=== PATIENT | female | born 1940 | race Caucasian/White ===

== ENCOUNTER 2023-10-21 15:42 | Emergency (ER) | payer OTHER, SELFPAY ==
[2023-10-21 15:56] VITALS: BP 173/79
[2023-10-21 16:47] VITALS: BMI 27.0
--- NOTE | 2023-10-21 18:12 | ED.GENMED ---
History of Present Illness
General
Chief Complaint: Fall
Source: patient
Time Seen by Provider: 10/21/23 18:04
Travel History
Have you had any contact with someone who has COVID-19?: No
Do you have any symptoms of coronavirus? Fever > 100 degrees, chills, cough, shortness of breath, sore throat, loss of taste or smell, muscle aches, or headache?: No
History of Present Illness
History of Present Illness:
83-year-old female presenting to the emergency department for evaluation after she was laying in a hammock and the hammock broke causing her to fall onto the ground striking the back of her head and lower back. Patient states that she feels as if
she is achy and has pain all over but worse on the left side of her body. She notes that she feels paresthesias diffusely. She denies any loss consciousness, vomiting, severe headache, focal weakness or numbness, neck pain or stiffness or any
other concerns. When asked what is bothering her the most patient states the back of her head and her lower back. Patient took 3 Advil around 230 this afternoon. She denies any use of anticoagulants. No other concerns
Past History
Past History
ED Past Medical History: HTN
ED Past Surgical History: , Orthopedic (Left knee meniscus repair, bilateral shoulder rotator cuff repair) and Other (Venous stripping right leg)
Social History
Tobacco: Non-smoker
Alcohol: None
Drug: None
Personal:
Living: with family
Employment: Employed
Review of Systems
Review of Systems
All Other Systems: ROS reviewed and negative except as documented in HPI and ROS
Phy Exam
Physical Exam
Physical Exam:
GENERAL: Alert , in no apparent distress but does appear uncomfortable with movement
Head: NCAT
EYE: conjunctiva clear
NECK: Supple, no midline tenderness
ENT: o/p clr, mmm.
LUNGS: no acute respiratory distress, no isolated chest wall tenderness
Back: Diffusely tender without any focal midline tenderness
NEUROLOGICAL: Alert and oriented x 3
SKIN: Warm and dry, skin intact.
MUSCULOSKELETAL: well perfused. Moves all extremities without difficulty
PSYCH: Normal and appropriate interaction.
Scores
Heart Failure Risk
Heart Failure Risk Score: Not Applicable
Heart Score for Chest Pain Patients
STEMI patient?: Not applicable
Withdrawal Assessment of Alcohol
Withdrawal Assessment Completed?: Not applicable
Course
Orders/Labs/Results
Orders:
Orders
10/21/23 18:12
CT Head W/o Iv Contrast Urgent
Comment:
Reason For Exam: fall from hammock, hit head, headache
CR Lumbar Spine Comp Min 4 Vw* Urgent
Comment:
Reason For Exam: fall from hammock, low back pain
Vital Signs
Initial and Last Documented VS:
Initial Vital Signs
Temp Pulse Resp BP Pulse Ox
98.1 F 68 18 173/79 98
10/21/23 15:56 10/21/23 15:56 10/21/23 15:56 10/21/23 15:56 10/21/23 15:56
Last Documented Vital Signs
Temp Pulse Resp BP Pulse Ox
98.1 F 68 18 173/79 98
10/21/23 15:56 10/21/23 15:56 10/21/23 15:56 10/21/23 15:56 10/21/23 15:56
MDM/Problems Addressed
Differential Diagnosis Includes:
Contusion, concussion, minimal concern for intracranial bleeding, lumbar contusion, lumbar fracture
MDM/Problems Addressed:
83-year-old female presenting to the emergency department for evaluation after she was sitting in a hammock and the hammock broke causing her to fall to the ground. Patient noting diffuse body aches but stating most of her injury seems to be back
of her head and her lower back. She is moving all extremities. Will check a head CT and x-ray of the lower back. Overall I suspect contusion to be the most likely diagnosis. Patient declining anything further for pain.
*Radiology
Radiology exam reviewed: radiology read reviewed
*Pulse Oximetry
Patient hypoxic: no
*Critical Care Note
Total Time (30-74mins, 75-104mins- exclusive of procedures): Not Applicable
Data Reviewed
Review of Other/Old Records Reveals: Labs and Records
Source: patient and records
Patient Management
Escalation/DeEscalation of care consider admission/obs:
Imaging unremarkable. Patient stable for discharge home and aware of return precautions.
ED Attending Note
-
Portions of this chart may have been created with voice recognition software.� Occasional wrong word or��sound alike� substitutions may have occurred due to the inherent limitations of voice recognition software.
Discharge Plan
Departure
Patient Disposition: Home (Routine Discharge)
Date of Disposition: 10/21/23
Time of Disposition: 19:13
Patient with high blood pressure during this ER visit?: Yes
Discharge Problem:
Fall involving hammock as cause of accidental injury, Contusion of head, Contusion of back
Instructions: Contusion (DC)
Prescriptions:
No Action
escitalopram oxalate 10 MG tablet
10 mg PO DAILY
cranberry 400 mg Capsule
400 mg PO DAILY
biotin 1 mg Tablet
1 mg PO DAILY
cholecalciferol (vitamin D3) [Vitamin D3] 25 mcg (1,000 unit) Tablet
25 mcg PO DAILY
zolpidem 5 mg Tablet
5 mg PO HSPRN PRN (Reason: insomnia) Qty: 1 0RF
Rx Instructions:
Was decreased on this admission
docusate sodium 100 mg Capsule
100 mg PO BID Qty: 30 0RF
Rx Instructions:
Initiated on this admission
polyethylene glycol 3350 [HealthyLax] 17 gram Powder In Packet
17 g PO DAILY Qty: 30 0RF
Rx Instructions:
Initiated on this admission
oxycodone 5 mg Tablet
5 mg PO TID Qty: 1 0RF
Rx Instructions:
Decreased on this admission
acetaminophen 325 mg Tablet
650 mg PO Q4HPRN PRN (Reason: mild pain/M[place]/temp> 100.4F) Qty: 1 0RF
lisinopril 20 mg Tablet
20 mg PO DAILY Qty: 30 0RF
Rx Instructions:
Combination of lisinopril hydrochlorothiazide discontinued
Continue just on lisinopril
lorazepam 1 mg Tablet
1 mg PO BID PRN (Reason: Mental Health/Anxiety) Qty: 0 0RF
Patient Comments:
PATIENT LOCATOR SPECIALIST ON 11/02/22 #60
Referrals:
Balaji Gross, DO [Family Provider] -
Interventions
Interventions:
*Risk Screen - Suicide Last Done: 10/21/23 19:28
*General Assessment Last Done: 10/21/23 15:56
*Neglect/Abuse Screening Last Done: 10/21/23 19:28
ED- Fall Risk Assessment Last Done: 10/21/23 16:47
*ED COVID-19 Vaccine History Last Done: 10/21/23 15:56
*Nursing Disposition Last Done: 10/21/23 19:28
ED-Musculoskeletal Assessment Last Done: 10/21/23 16:47
ED- Neurological Assessment Last Done: 10/21/23 16:47
ED-Skin Assessment Last Done: 10/21/23 16:47
Discharge Date and Time
Discharge Date/Time: 10/21/23 19:28
Print Language: GREEK
== END 2023-10-21 19:28 | disposition home or self-care (01) ==
LOC: EMR 15:42
PROVIDERS: EMERGENCY PHYSICIAN Emergency Medicine; FAMILY PHYSICIAN Internal Medicine
DX: S20.229A Contusion of unspecified back wall of thorax, initial encounter (principal); S00.83XA Contusion of other part of head, initial encounter; W17.89XA Other fall from one level to another, initial encounter; I10 Essential (primary) hypertension
CPT/HCPCS: 99284; 70450; 72110

== ENCOUNTER → 2023-12-06 13:47 | Outpatient (REF) | payer OTHER, SELFPAY | LOC: RCS 13:47 | PROVIDERS: ATTENDING PHYSICIAN Nurse Practitioner Family; FAMILY PHYSICIAN Internal Medicine | DX: R00.2 Palpitations (principal) | CPT/HCPCS: 93005; 93225; 93226 ==

== ENCOUNTER → 2023-12-10 07:05 | Outpatient (REF) | payer OTHER, SELFPAY | LOC: RCS 07:05 | PROVIDERS: ATTENDING PHYSICIAN Internal Medicine | DX: R00.2 Palpitations (principal) | CPT/HCPCS: 93306 ==

== ENCOUNTER 2023-12-21 08:42 | Day surgery (SDC) | payer OTHER, SELFPAY ==
[2023-12-21] MEDS: ANESTHETIC LOZENGE 1 LOZENGE PO (11:04)
== END 2023-12-21 11:15 | disposition home or self-care (01) ==
LOC: CATH 08:42
PROVIDERS: ATTENDING PHYSICIAN Internal Medicine Cardiovascular Disease; FAMILY PHYSICIAN Internal Medicine
DX: I34.0 Nonrheumatic mitral (valve) insufficiency (principal); R00.2 Palpitations; I10 Essential (primary) hypertension; F41.9 Anxiety disorder, unspecified; Z82.49 Family history of ischemic heart disease and other diseases of the circulatory system
CPT/HCPCS: 93312; 93320; 93325

== ENCOUNTER 2023-12-26 06:34 | Day surgery (SDC) | payer OTHER, SELFPAY ==
[2023-12-26] VITALS (12 sets, daily range): BP systolic 139–172; BP diastolic 65–83; BMI 25.5
[2023-12-26] MEDS: NSS 184 ML IV (07:08)
[2023-12-26] MEDS: LOW STRENGTH ASPIRIN 81 MG PO (07:12)
--- NOTE | 2023-12-26 08:56 | ITS.CL.CATH ---
Registered Nurse Maternal Child - Catheterization
Cardiac Catheterization
Procedure Report:
CARDIAC CATHETERIZATION REPORT
Date of Procedure: 12/26/2023
Referring: Gigi Al M.D.
Indication: Severe mitral valve regurgitation
PROCEDURE:
1. Right heart catheterization.
2. Left heart catheterization.
3. Coronary angiography.
ACCESS:
6 [place] right radial artery.
5 [place] right antecubital vein.
CATHETERS:
1. 5 [place] balloon wedge.
2. 5 [place] JL 3.5.
3. 5 [place] JR4.
HEMODYNAMIC DATA
Weight (kg): 60.8
AO (s/d/x mmHg): 184/77/120
LV (s/x mmHg): 184/16
PCWP (a/v/x mmHg): 22//16
PA (s/d/x mmHg): 40/16/24
RV (s/x mmHg): 40/10
RA (a/v/x mmHg): 12/12/10
SVC SvO2 (%): 60.1
PA SvO2 (%): 65.1
SaO2 (%): 94.3
Hbg (g/dL): 13.0
CO (L/min): 2.71
CI (L/min/m2): 1.70
TPG (mmHg): 8
PVR (Strauss Units): 2.95
SVR (dynes*seconds*cm^-5): 3247
AVO2 Diff (Volume %): 5.16
AV gradient (x, mmHg): None.
AV area (cm2): Normal.
LEFT VENTRICULOGRAPHY: Not performed. There is dense mitral annular calcification.
CORONARY ANGIOGRAPHY
Dominance: Right.
Left Main: Normal size, bifurcating vessel. There is no coronary artery disease.
LAD: Normal size vessel giving rise to 1 significant diagonal. There is no coronary artery disease.
Ramus: Congenitally absent.
Circumflex: Large size, nondominant vessel giving rise to a single large obtuse marginal which supplies the majority of the lateral wall. There is no coronary artery disease.
RCA: Normal size vessel with an anterior takeoff and nonselective engagement. There is no coronary artery disease.
INTERVENTIONS
None.
Closure Device: Vascular band for the right radial artery, manual pressure for the right antecubital vein.
Radiation dose (mGy): 236.91
DAP (cm2.Gy): 22.2417
Fluoroscopy time (minutes): 3.4
Sedation time (minutes): 15
CONCLUSIONS:
1. Right dominant circulation with no coronary artery disease.
2. Top normal to mildly elevated filling pressures (LVEDP = 16 mmHg, PCWP = 16 mmHg at 60.8 kg).
3. Depressed cardiac index (1.7 L/min/m�).
4. Severely elevated SVR (3247 dynes*seconds*cm^-5).
5. Dense mitral annular calcification.
6. Severe degenerative mitral regurgitation on echocardiography.
RECOMMENDATIONS:
1. Expectant management after cardiac catheterization via right radial/antecubital approach.
2. Limited weight bearing on the right wrist for one week.
3. Referral to CT surgery for consideration of mitral valve repair/replacement.
4. Careful observation of blood pressure with low threshold to increase lisinopril (to decrease SVR and improve forward flow).
Copy to: Gigi Al M.D., Wang Reynolds M.D., Balaji Gross D.O.
Elmer Cannon, DO, FACC, FACP
== END 2023-12-26 11:35 | disposition home or self-care (01) ==
LOC: CATH 06:34
PROVIDERS: ATTENDING PHYSICIAN Internal Medicine Cardiovascular Disease; CONSULT PHYSICIAN Thoracic Surgery (Cardiothoracic Vascular Surgery); FAMILY PHYSICIAN Internal Medicine
DX: I34.0 Nonrheumatic mitral (valve) insufficiency (principal); R00.2 Palpitations; I10 Essential (primary) hypertension; Z82.49 Family history of ischemic heart disease and other diseases of the circulatory system; Z79.82 Long term (current) use of aspirin
CPT/HCPCS: 93460; C1894; Q9967

== ENCOUNTER → 2024-01-25 07:22 | Outpatient (REF) | payer OTHER, SELFPAY | LOC: RAD 07:22 | PROVIDERS: ATTENDING PHYSICIAN Thoracic Surgery (Cardiothoracic Vascular Surgery); FAMILY PHYSICIAN Internal Medicine | DX: I34.0 Nonrheumatic mitral (valve) insufficiency (principal); Z01.818 Encounter for other preprocedural examination | CPT/HCPCS: 74174; 75574; Q9967 ==

== ENCOUNTER 2024-01-31 05:07 | Inpatient (IN) | payer OTHER, SELFPAY ==
[2024-01-10 14:08] LABS: % Basophils 0.6 % (0-2); % Eosinophils 3.9 % (0-6); % Immature Granulocytes 0.3 % (0-0.5); % Lymphocytes 19.4 % (20.5-51.1); % Monocytes 11.2 % (1.7-9.3); % Neutrophils 64.6 % (42.2-75.2); Absolute Eosinophils 0.3 10^3/uL (0-0.7); Absolute Lymphocytes 1.4 10^3/uL (1.2-3.4); Absolute Monocytes 0.8 10^3/uL (0.1-0.6); Absolute Neutrophils 4.7 10^3/uL (1.4-6.5); Hematocrit 34.9 % (37.0-47.0); Hemoglobin 12.3 g/dL (12.0-16.0); Mean Corp Hgb Conc. 35.2 g/dL (33.0-37.0); Mean Corpuscular Hgb 31.3 pg (27.0-31.0); Mean Corpuscular Volume 88.8 fL (81.0-99.0); Mean Platelet Volume 9.8 fL (7.4-10.4); Nucleated Red Blood Cells % 0 %; Platelet Count 307 10^3/uL (130-400); Red Blood Cell Count 3.93 10^6/uL (4.20-5.40); Red Cell Dist. Width 11.6 % (11.5-14.5); White Blood Cell Count 7.3 10^3/uL (4.8-10.8)
[2024-01-10 14:25] LABS: INR 1.06; PT 13.6 Sec (11.4-14.6)
[2024-01-10 14:26] LABS: APTT 31.9 Sec (23.4-35.0)
[2024-01-10 14:38] LABS: ALT (SGPT) 16 U/L (0-35); AST (SGOT) 25 U/L (14-36); Albumin 4.5 g/dl (3.5-5.0); Alkaline Phosphatase 67 U/L (38-126); Blood Urea Nitrogen 28 mg/dl (7-17); Calcium 10.1 mg/dl (8.4-10.2); Carbon Dioxide 27 mmol/L (22-30); Chloride 94 mmol/L (98-107); Direct Bilirubin 0.1 mg/dl (0.0-0.4); Glucose 75 mg/dl (70-99); Sodium 127 mmol/L (135-145); Total Bilirubin 0.6 mg/dl (0.2-1.3); Total Protein 6.7 g/dl (6.3-8.2); eGFR > 60.00
[2024-01-10 14:44] LABS: Potassium 4.3 mmol/L (3.5-5.1)
[2024-01-10 14:57] LABS: Urine Albumin Negative (Neg - Trace); Urine Bilirubin Negative (Negative); Urine Character Clear (Clear); Urine Color Yellow; Urine Glucose Negative (Negative); Urine Ketone Negative (Negative); Urine Leukocyte Negative (Negative); Urine Nitrite Negative (Negative); Urine Occult Blood Trace (Negative); Urine Specific Gravity 1.015 (<1.030); Urine Urobilinogen Negative (Neg - 1+)
--- NOTE | 2024-01-10 15:08 | CM ---
spoke to pt in PAT's, she is prev indep, lives with her daughter in a 2 story home with no steps to enter. shedenies any dme's. she has the cardiac educ book, soap and instructions. she is agreeable to a f/u visit fro the ct transitional care nurses
after dc. plan is for MVR 01/30, cm role explained and all questions answered.
[2024-01-10 15:16] LABS: Urine Squamous Cell 0-2 /LPF (Few)
[2024-01-10 15:17] LABS: Urine Bacteria Few (Negative); Urine Red Blood Cell 0-2 /HPF (0-2); Urine White Cell 0-2 /HPF (0-5)
[2024-01-11 10:53] LABS: Glycohemoglobin (HgbA1c) 5.3 % (4.0-5.6)
[2024-01-31] VITALS (12 sets, daily range): BP systolic 77–157; BP diastolic 47–85; BMI 26.1
[2024-01-31] MEDS: LOPRESSOR 25 MG PO (05:32)
[2024-01-31] MEDS: PROTONIX 40 MG PO (05:32)
[2024-01-31] MEDS: MAGNESIUM OXIDE 500 MG PO (05:32)
[2024-01-31] MEDS: BACTROBAN 2% OINTMENT 1 APPLIC NASAL ×2 (05:33→19:35)
--- NOTE | 2024-01-31 05:45 | PTCARENOTE ---
pt admitted into room 2262. VS and weight obtained. pt confirms 2 showers @ home w surgical soap and NPO since midnight. admission questions and med rec completed. clip prep and CHG wipes done. pre-op meds given. pt oriented to room and call ram.
family now @ bedside.
--- NOTE | 2024-01-31 06:19 | W.CVOR.SURPR ---
CVOR Surgeon Immed Pre Op
-
I have examined this patient prior to performance of the scheduled procedure.
The patient's condition is unchanged from the time of the dictated/written History and
Physical and the patient is able to undergo the scheduled procedure.
High risk MVrR, MARIAH Clip +/- TV Repair
Significant MAC burden
--- NOTE | 2024-01-31 06:31 | W.PN.CT ---
Assessment / Plan
-
Assessment:
-S/p standard sternotomy with aortic and bicaval cannulation/Chordal sparing mitral valve replacement [27 mm bioprosthesis]/ Patch repair of the annulus from P1-P3 using bovine pericardium/Aggressive debridement using the CUSA device in order to
remove all of the MAC/Left atrial appendage exclusion with a 35 mm clip, by Dr. Reynolds, 01/31/24, pod#1
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
-Degenerative mitral valve disease with elements of stenosis and retracted cords, resulting in severe insufficiency
-LVEF 60-65% per intraop CHA
-Mild TR
-Chronic diastolic CHF
-HTN
-Chronic back S/p Epidural steroid injections of L2-L3 (01/29/21); L4-L5 ()
-Chronic opioid dependence
-Anxiety disorder
-Anemia
-S/P R ROSELINE (06/2020)
-S/P B/L shoulder surgery (2011)
-S/P x 4
-Acute postop blood loss anemia on chronic anemia (transfused 1u PRBC)
-Acute postop atelectasis
-Acute postop Cardiogenic shock (CI 0.85-1.52)
-Acute postop hypovolemia with subsequent hypervolemia
Plan:
-No major issues overnight. Hemodynamically and neurologically intact
-Successfully extubated on 01/31/24 @ 2044
-Weaned off Levophed overnight, on dobutamine @ , remains on insulin per protocol
-Last CI, MVO2 , U/O since OR
-Monitor chest tube output: 2med , Rpl
-Cont. current meds (ASA, Lexapro; Amiodarone and Lopressor currently on hold while on dobutamine gtt)
-Wean off dobutamine gtt as tolerated
-D/C swan and a-line once off dobutamine gtt
-Tele phase when off insulin and dobutamine gtt
-D/C woodson catheter later today
-Maintain cordis
-Maintain temporary pw (will pull in 1-2 days)
-Wean off of O2 as tolerated
-Encourage use of IS
-OOB into chair/Ambulate
Subjective
-
Date of Service: January 31, 2024
Objective Data
-
Lab Results
01/10/24 12:39
01/10/24 12:40
PT 13.6 Sec (11.4-14.6) 01/10/24 12:39
INR 1.06 01/10/24 12:39
APTT 31.9 Sec (23.4-35.0) 01/10/24 12:39
Vital Signs
Vital Signs
Temp Pulse Resp Pulse Ox
97.7 F 67 20 98
01/31/24 05:25 01/31/24 05:25 01/31/24 05:25 01/31/24 05:25
SaO2: 98
[2024-01-31 07:19] LABS: ACT+ - POC 93 Seconds (82-134)
--- NOTE | 2024-01-31 07:48 | W.PN.CD ---
Today's Communication / Plan
-
Surgery today.
Impression / Plan
-
Impression/Plan: 83 y/o female with HTN and severe, degenerative mitral valve regurgitation with dense MAC admitted for elective MVR.
#Severe, degenerative MVR
-Patient reviewed in MDT meeting. The patient is not an ideal candidate for JEYSON and would make a better surgical candidate.
-Plan for mitral valve repair/replacement this morning.
-Anticipate routine post operative course.
-Wean pressors/inotropes for a MAP > 65 mmHg, CI > 2.2 L/min/m2.
#HTN
-Chronic, stable.
-We will adjust medications as needed post op.
Subjective/Interval History:
Patient is currently undergoing surgery.
DATA:
Cardiac Catheterization, 12/26/2023:
CONCLUSIONS:
1. Right dominant circulation with no coronary artery disease.
2. Top normal to mildly elevated filling pressures (LVEDP = 16 mmHg, PCWP = 16 mmHg at 60.8 kg).
3. Depressed cardiac index (1.7 L/min/m�).
4. Severely elevated SVR (3247 dynes*seconds*cm^-5).
5. Dense mitral annular calcification.
6. Severe degenerative mitral regurgitation on echocardiography.
CHA, 12/21/2023:
CONCLUSIONS
Normal LV size and function with no regional wall motion abnormalities.
LVEF is 60 to 65% by visual estimation.
Normal right ventricular size and function.
Mitral annular calcification with posterior leaflet prolapse of the P2 and P3
scallops with resultant anteriorly directed severe mitral regurgitation.
Systolic flow reversal (suggestive of severe MR) in the pulmonary veins.
Compared to prior from December 10, 2023, MR remains severe.
Physical Exam
Vital Signs/Labs
Vital Signs
Temp Pulse Resp Pulse Ox
36.5 C 67 20 98
01/31/24 05:25 01/31/24 05:25 01/31/24 05:25 01/31/24 06:32
01/29/24 01/30/24 01/31/24
11:59 11:59 11:59
Actual Weight 62.6 kg
01/10/24 12:39
01/10/24 12:40
PT 13.6 Sec (11.4-14.6) 01/10/24 12:39
INR 1.06 01/10/24 12:39
APTT 31.9 Sec (23.4-35.0) 01/10/24 12:39
Physical Exam
Patient appears comfortable.
Remainder of exam deferred at Dr. Reynolds's request.
Data Reviewed
-
Date of Service: January 31, 2024
Medical Decision Making: Reviewed Test Results, Test Interpretation and Review of Case with other Provider
EKG: Tracing Personally Visualized and interpreted and Report Reviewed by me
Echo: Tracing Personally Visualized and interpreted and Report Reviewed by me
X-Ray/CT/US/MRI/NUC/PET: Image Personally Visualized and interpreted and Report Reviewed by me
Medical Tests (PFT, Pathology etc): Image Personally Visualized and interpreted and Report Reviewed by me
Labs: Labs Reviewed by me
Old Records: Reviewed
[2024-01-31 08:22] LABS: ACT+ - POC 911 Seconds (82-134)
[2024-01-31 08:38] LABS: B.E. - POC -1.1 mmol/L; Glucose - POC 89 mg/dl (70-99); HCO3 - POC 22 mmol/L (21-29); Hematocrit - POC 32 % PCV (37-47); Hemodilution- POC No; Hemoglobin Calculated - POC 10.8; Ionized Calcium - POC 1.22 mmol/L (1.12-1.27); O2 Saturation %Calculated-POC 99.8 5 (92-96); PCO2 - POC 31 mmHg (35-45); PO2 - POC 224 mmHg (80-100); POC Comment PRE; Potassium - POC 3.3 mmol/L (3.6-5.0); Sodium - POC 132 mmol/L (135-145); pH - POC 7.46 (7.35-7.45)
[2024-01-31 08:39] LABS: Urine Albumin Negative (Neg - Trace); Urine Bilirubin Negative (Negative); Urine Character Clear (Clear); Urine Color Yellow; Urine Glucose Negative (Negative); Urine Ketone Negative (Negative); Urine Leukocyte Negative (Negative); Urine Nitrite Negative (Negative); Urine Occult Blood Negative (Negative); Urine Specific Gravity 1.015 (<1.030); Urine Urobilinogen Negative (Neg - 1+)
--- NOTE | 2024-01-31 09:13 | CM ---
Reviewed chart. Mrs. Melton is in the operating room today. Prior to admission she resides with her daughter in a two story home without any steps to enter. Prior to admission she was independent with ambulation and adls. She does not have any
DME in the home. Medial work-up in progress. The discharge plan is to return home with her daughter and a home visit by the Cardiothoracic Transitional Care Nurse when medically stable.
[2024-01-31 09:14] LABS: B.E. - POC 5.6 mmol/L; Glucose - POC 97 mg/dl (70-99); HCO3 - POC 28 mmol/L (21-29); Hematocrit - POC 21 % PCV (37-47); Hemodilution- POC Yes; Hemoglobin Calculated - POC 7.2; Ionized Calcium - POC 0.91 mmol/L (1.12-1.27); PCO2 - POC 33 mmHg (35-45); PO2 - POC 508 mmHg (80-100); POC Comment CPB; Potassium - POC 3.8 mmol/L (3.6-5.0); Sodium - POC 128 mmol/L (135-145); pH - POC 7.55 (7.35-7.45)
[2024-01-31 10:00] LABS: B.E. - POC 4.8 mmol/L; Glucose - POC 117 mg/dl (70-99); HCO3 - POC 27 mmol/L (21-29); Hematocrit - POC 27 % PCV (37-47); Hemodilution- POC Yes; Hemoglobin Calculated - POC 9.2; Ionized Calcium - POC 1.02 mmol/L (1.12-1.27); PCO2 - POC 32 mmHg (35-45); PO2 - POC 435 mmHg (80-100); POC Comment CPB; Sodium - POC 133 mmol/L (135-145); pH - POC 7.54 (7.35-7.45)
[2024-01-31 10:15] LABS: ACT+ - POC 780 Seconds (82-134)
[2024-01-31 10:27] LABS: B.E. - POC 2.7 mmol/L; Glucose - POC 126 mg/dl (70-99); HCO3 - POC 27 mmol/L (21-29); Hematocrit - POC 28 % PCV (37-47); Hemodilution- POC Yes; Hemoglobin Calculated - POC 9.4; Ionized Calcium - POC 1.06 mmol/L (1.12-1.27); O2 Saturation %Calculated-POC 99.9 5 (92-96); PCO2 - POC 37 mmHg (35-45); PO2 - POC 316 mmHg (80-100); POC Comment CPB; Potassium - POC 4.4 mmol/L (3.6-5.0); Sodium - POC 133 mmol/L (135-145); pH - POC 7.46 (7.35-7.45)
[2024-01-31 10:57] LABS: ACT+ - POC 101 Seconds (82-134)
[2024-01-31 11:04] LABS: B.E. - POC -2.8 mmol/L; Glucose - POC 146 mg/dl (70-99); HCO3 - POC 21 mmol/L (21-29); Hematocrit - POC 26 % PCV (37-47); Hemodilution- POC Yes; Hemoglobin Calculated - POC 8.8; Ionized Calcium - POC 1.41 mmol/L (1.12-1.27); PCO2 - POC 31 mmHg (35-45); PO2 - POC 355 mmHg (80-100); POC Comment POST; Potassium - POC 3.4 mmol/L (3.6-5.0); Sodium - POC 137 mmol/L (135-145); pH - POC 7.44 (7.35-7.45)
--- NOTE | 2024-01-31 11:43 | W.PN.CT.SURG ---
CT Surgery Operative Note
-
CARDIAC SURGERY OPERATIVE REPORT
Preoperative Diagnosis: Degenerative mitral valve disease with severe mitral annular calcification, symptomatic
Postoperative Diagnosis: Same
Procedure(s) Performed:
1. Standard sternotomy with aortic and bicaval cannulation
2. Chordal sparing mitral valve replacement [27 mm bioprosthesis]
3. Patch repair of the annulus from P1-P3 using bovine pericardium
4. Aggressive debridement using the CUSA device in order to remove all of the MAC
5. Left atrial appendage exclusion with a 35 mm clip
6. Transesophageal echocardiography
7. Placement of temporary atrial ventricular pacing wires
Date of Surgery: 01/31/2024
Comorbidities:
1. 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
2. Degenerative mitral valve disease with elements of stenosis and retracted cords, resulting in severe insufficiency
3. Hypertension
4. Chronic diastolic heart failure
Attending Surgeon: Wang Reynolds MD, MS
Assistants: Wang Myers PA-C (present and necessary to exceptional children teacher assistant, retraction, suction, exposure, suture management, and wound closure under my direction)
Anesthesiology: Amrik Bell MD and Rhea Sheridan CRNA
Scrub and Circulating RNs: Brad Monique RN, Mary Russell RN
Bulb Packer: Amos Fierro CCP
Anesthesia: GETA
EBL: per perfusion records
Products: None
CPB Time: 133 minutes
Aortic Cross Clamp Time: 120 minutes
Indication(s) for Procedures: This was an 83-year-old female with severe mitral valve insufficiency secondary to prolapse of the leaflets as well as severe mitral annular calcification, 270 degrees. She was referred as an outpatient to me, and came
to the office severely symptomatic that was notable for the last 6 months. Right heart cath demonstrated mildly depressed cardiac index of 1.7. Left heart cath did not reveal any significant coronary artery disease. Her baseline functional status
is excellent. We discussed her case at our multidisciplinary team meeting, conclusion was that she was not a great clip candidate or TMVR candidate. Ultimately, I offered her high risk surgical replacement of mitral valve as well as left atrial
Penders occlusion and possible tricuspid valve intervention.
Mitral Valve Description: Severe mitral annular calcification spanning from the left to right trigone with severe infiltration into the myocardium. Papillary muscle heads were also shortened and the leaflets were retracted with some scarring up
towards the free margin the leaflet. There was some evidence of prolapse of the posterior leaflet. However, the overall jet was relatively central. The valve was not salvageable. C-Sept was 1.2cm and her ventricular was hyperdynamic and mildly
hypertrophied making her extremely high risk for RENE.
Findings: Left ventricular ejection fraction preoperatively was 65% with evidence of diastolic dysfunction. Following surgery she had no new regional wall motion abnormalities and EF remained the same at 65% possibly 70% and was hyperdynamic.
There was severe calcification spanning from trigone to trigone along the posterior aspect of the mitral valve. The posterior leaflet was detached and the calcification was debrided down to the level of the muscle of the left atrium and left
ventricle. At this point using a large piece of bovine pericardium, the raw surface that was debrided using the CUSA device was then covered and patched with 4-0 Prolene in a running fashion from apex to apex. The ventricle as well as the atrium
and pulmonary veins were thoroughly irrigated and inspected for any debris. Next pledgeted 2 Ethibond sutures to circumferentially going from LV through patch through annulus and back out into the sewing cuff of the new valve. The new valve was
then oriented after using a dental mirror to visualize the LVOT and aortic valve. A total of 13 pledgeted 2 Ethibond sutures were used to secure the valve in place. An additional piece of bovine pericardium was placed along the anterior annulus to
support the tissue there. These were secured with core knots. The valve was then inspected and appeared to be well-seated. The left atrial appendage was verified to be free of any thrombus or debris preoperatively and was clipped after arresting
the heart before working on the mitral valve to minimize manipulation. Coming off of cardiopulmonary bypass she had a period of AV dyssynchrony requiring pacing but ultimately settled out. The mitral valve did not have any paravalvular leak and
all leaflets were moving accordingly. The LVOT was free of any struts for obstruction and the mean gradient across the mitral valve was acceptable. The left atrial appendage was found to be totally occlusive flush to the base with no residual flow
on color Doppler. Overall she did not require any blood products, and did not require any inotropic support. She was started on Cardene for hypertension.
Specimen(s): Calcium from the mitral annulus (not sent).
Prosthesis:
1. 27mm GALINDO MITRIS RESILIA MVR, SN [id number]
2. 35mm MARIAH Clip, SN [id number]
3. Biological Patch, SN [id number]
Description of Procedure: The patient was taken to the operating room. Their identity and procedure to be performed were verified and they were positioned supine on the operating table. Induction via general anesthesia with endotracheal intubation
was performed and central venous access and arterial monitoring were inserted. A preoperative transesophageal echocardiogram was performed to assess cardiac function and valvular function. The patient was then prepped and draped from chin to feet in
a sterile fashion. A preoperative time-out was performed with all members of the team present. A midline chest incision was performed along with median sternotomy. The innominate vein was isolated. Full heparinization was given (a total of 35,000
units). We created a pericardial well. The aortic cannulation site was chosen where it was soft, pliable, and free of calcium. Cannulation was performed with an arterial cannula in the ascending aorta, angled metal tip cannular in the superior vena
cava and straight bendable cannula in the inferior vena cava. The arterial cannula line had an appropriate bounce and correlating pressures. Next, a root vent/antegrade cannula was inserted into the ascending aorta. The ACT was confirmed to be over
400 and retrograde autologous priming was performed before commencing cardiopulmonary bypass. The pulmonary artery was away from the aorta to facilitate a clamp site. Sondergaard�s groove was developed after creating the oblique sinus. A
Ray-Svetlana was then placed through the oblique sinus in order to help retract the heart medially to expose left atrial appendage. It was sized to a 35 mm clip and placed flush to the base. The aortic cross-clamp was placed after decreasing the flow
on the bypass and mean arterial pressure. A total of 1.2L initial dose of antegrade Del-Nido cardioplegia solution was given and planned for re-dosing every 75 minutes as necessary. There was rapid electro-mechanical arrest of the heart at 270 cc of
cardioplegia. The left ventricle was observed for distention on echocardiogram and manual palpation. Cold slush was placed into a lap on the RV and we systemically cooled to 34 degrees centigrade.
Carbon dioxide was used to flood the field. The mitral valve was access via the intra-atrial groove and the left atrium followed by valve analysis. The mitral valve was replaced as described above after debridement of the mitral annular
calcification and patching of the annulus. The left ventricular vent was repositioned across the mitral valve into the left ventricular and the left atrium was closed with a 3-0 prolene.
De-airing maneuvers were performed and temporary bipolar ventricular pacing wires were placed on the base of the right ventricle along with temporary atrial pacing wires at the SVC right atrial junction. The patient was placed in a Trendelenburg
position and flows on bypass were lowered. The aortic cross clamp was removed and flows were slowly brought back up. The left atrial suture line was hemostatic. Transesophageal echocardiography revealed no evidence of systolic anterior motion and
ventricular function was normal. Once de-airing was satisfactory the left ventricular and root vents were removed. After verifying acceptable parameters, we initiated weaning from cardiopulmonary bypass. Once we were off cardiopulmonary bypass, the
venous cannulas was clamped and removed sequentially. A test dose of protamine was administered and the patient was monitored for any adverse reaction before resuming protamine. Once half of the protamine dose was delivered, pump suckers were turned
off and the systolic blood pressure was lowered for aortic decannulation. The aortic cannula was removed and purse strings were tied down. All cannulation sites were oversewn with a 4-0 prolene. The left atrial suture line was inspected and
hemostasis was confirmed. Mediastinal hemostasis was obtained. Two #24 Lucien drains were placed within the pericardium. Along with a #19 Lucien drain to the right hemithorax the sternum was approximated with 4 #7 single and 3 #8 double stainless
steel wires. Fascia was approximated with #1 vicryl suture. The subcutaneous, dermis and epidermis were closed in layers in a running fashion. The skin wound was cleansed and dressed.
All instrument, sponge, and needle counts were confirmed to be correct x 2 at the end of the operation. The patient was transferred to the cardiac intensive care unit in critical but stable condition.
I, Dr. Wang Reynolds, was present, scrubbed for, and performed all critical elements of this procedure.
Wang Reynolds MD, MS
Cardiothoracic Surgeon
[facility]
This dictation was created using the [employer] dictation system. Please excuse any grammatical, typographical, or 'sound alike' errors
[2024-01-31 11:57] LABS: Glucose - Point of Care 147 mg/dl (70-99)
--- NOTE | 2024-01-31 12:04 | W.PN.UPDATE ---
Update Note
Progress Note Update
83-year-old female electively admitted on 01/31/2024 for mitral valve replacement due to nonrheumatic severe mitral regurgitation
IV fluids: 1100
U.O.:� 800
Blood:� none
Wires:� 2A & bipolar V-wire
Gtts:� Levophed, Insulin, Precedex
�
�
NEURO: sedated on Precedex, pupils +2mm B/L. Cold on admission (T 95.3F)
RESP: #8OT @24cm> 450/100%/14/5. Lungs clear B/L. 1 mediastinal (0cc on arrival) and R/L pleural (0cc on arrival) chest tubes to -20cm suction. Sanguineous drainage
CV: RRR +S1, S2, no S3, no�rub, no murmur. Dermabond to median sternotomy. RIJ w/[place] locked @ XXcm. PA /; CVP 11
ABD: round, soft, no BS
EXT: no edema, +2/4 DP pulses B/L, no femoral bruit, left radial A-line intact
: Correia with john paul colored urine
�
A/P: POD #0 s/p Chordal sparing mitral valve replacement [#27 mm bioprosthesis], patch repair of the annulus from P1-P3 with bovine pericardium, left atrial appendage exclusion #35 mm clip
CHA: report pending
- wean and extubate
- Maintain SBP<110mmHg
- check echo pre-discharge
- will need instruction regarding antibiotic prophylaxis for dental and invasive procedures
- Marianela Hugger
�
# acute surgical blood loss anemia-expected
- HB 10>trend CBC
�
�# Hypertension
- on Lisinopril, HCTZ at home
- currently on Levophed
# Anxiety
- continue Escitalopram 20mg daily
[2024-01-31 12:12] LABS: B.E. -3.7 mmol/L; HCO3 20.3 mmol/L (21-28); Ionized Calcium 1.32 mMOL/L (1.15-1.33); O2 Saturation % 99.8 % (94-98); PCO2 32 mmHg (32-35); PO2 269 mmHg (83-108); Potassium 3.2 mMOL/L (3.5-5.1); Sodium 135 mMOL/L (136-145); pH 7.41 (7.35-7.45)
--- NOTE | 2024-01-31 12:13 | PTCARENOTE ---
Received pt from [facility] at 1145; pt intubated and sedated; Sinus Bradycardia on monitor and VSS; RITesfaye Jaime floated to 46. Left A-line and PIV x 1; all lines leveled and zeroed; Insulin and Precedex infusing see flow sheet for details;
Epicardial A/V wires set to back up VVI 40/20/0.8 no pacing noted; lungs diminished; CT x3 to -20 wall suction no air leak and no crepitus noted; ETT 8@21; SIMV 60%/450/14/5; hypoactive bowel sounds; Correia catheter draining clear yellow urine; lower
extremity pulses present by Doppler and radial palpable; no edema noted; all surgical sites C/D/I; see nursing documentation for further details.
[2024-01-31] MEDS: KCL 50 IV ×2 (12:25→13:31)
[2024-01-31] MEDS: NEURONTIN PO ×3 (12:26→22:43)
[2024-01-31] MEDS: NSS 500 IV (12:26)
[2024-01-31] MEDS: LEXAPRO PO (12:26)
[2024-01-31] MEDS: ANCEF 10 IV ×2 (12:26)
[2024-01-31 12:29] LABS: Hematocrit 27.8 % (37.0-47.0); INR 1.49; PT 18.1 Sec (11.4-14.6); Platelet Count 189 10^3/uL (130-400)
[2024-01-31 12:30] LABS: APTT 42.8 Sec (23.4-35.0)
[2024-01-31 12:37] LABS: Blood Urea Nitrogen 13 mg/dl (7-17); Estimated Creatinine Clearance 53 ml/min; Glucose 129 mg/dl (70-99); Magnesium 3.7 mg/dl (1.6-2.3)
--- NOTE | 2024-01-31 12:37 | CON.INTV ---
Consultation
Consultation Request
Date/Time Consultation Requested: 01/30
Date/Time Consultation Performed: 01/30
Reason for Consultation: Critical care
Medical History
-
History of Present Illness:
History obtained from the chart, and reviewing outpatient records. Patient is an 82-year-old female with history of severe mitral regurgitation, hypertension, who noted increased shortness of breath and palpitations. She was found to have normal
ejection fraction, no significant coronary disease. Patient is now status post mitral valve replacement with extensive debridement for MAC. Did not require blood products, presently on norepinephrine. Chest tube drainage minimal at this time.
Patient transferred to CVICU from the OR. We are asked to follow from critical care standpoint 01/31/2024
.
PMH: Hypertension, history of , right hip repair, lumbar surgery
Past Medical History
Past Medical History: None (See above)
Past Surgical History: None ( see above)
Social History
Tobacco: Non-smoker
Alcohol: Occasional
Drug: None
Personal:
Living: With Family (Lives with her daughter)
Employment: Retired (Teacher)
Family History
Family History: Other (Mother , history of thyroid cancer. Father , history of heart disease)
Allergies / Home Medications
Allergies
Allergy/AdvReac Type Severity Reaction Status Date / Time
methylprednisolone Allergy stomach Verified 01/27/24 13:15
pain
Sulfa (Sulfonamide AdvReac feel sick Verified 01/23/24 13:36
Antibiotics)
Home Medications
�Medication �Instructions �Recorded �Confirmed �Last Taken �Type
cranberry 400 mg capsule 400 mg PO QPM Supplement 11/06/22 01/31/24 01/23/24 History
acetaminophen 325 mg tablet 650 mg (2 x 325 mg) PO Q4HPRN PRN 11/10/22 01/31/24 01/24/24 Rx
mild pain/MONTEMAYOR/temp> 100.4F #1 tab
hydrochlorothiazide 25 mg tablet 25 mg PO QPM Blood Pressure 12/21/23 01/31/24 01/30/24 History
lorazepam 1 mg tablet 1 mg PO BIDPRN PRN Mental 12/21/23 01/31/24 01/31/24 04:45 History
Health/Anxiety
aspirin 81 mg tablet,delayed 81 mg PO DAILY Blood Clot 01/09/24 01/31/24 01/30/24 History
release Prevention/Tx
biotin 10,000 mcg capsule 1,000 mcg PO DAILY Supplement 01/09/24 01/31/24 01/23/24 History
escitalopram oxalate 20 mg tablet 20 mg PO DAILY Mental 01/09/24 01/31/24 01/30/24 History
Health/Anxiety
lisinopril 40 mg tablet 40 mg PO DAILY Blood Pressure 01/09/24 01/31/24 01/28/24 History
melatonin 1 mg chewable tablet 1 mg PO HS PRN sleep 01/09/24 01/31/24 01/29/24 History
Review of Systems
-
Unable to Obtain full review of systems at this time due to: Patient Intubation
Vitals / Labs / Diagnostic Testing
Vital Signs
Temp Pulse Resp BP Pulse Ox
95.8 F L 55 14 157/84 100
01/31/24 12:03 01/31/24 12:00 01/31/24 12:03 01/31/24 05:16 01/31/24 12:29
Laboratory Results
01/31/24
11:55
PT 18.1 H
INR 1.49
APTT 42.8 H
pH 7.41
pCO2 32
pO2 269 H
HCO3 20.3 L
O2 Delivery Level
Diagnostic Testing:
Physical Exam
-
HEENT: Normocephalic, Anicteric and Other (Right IJ, left upper extremity A-line, chest tube)
Cardiovascular: S1/S2, Regular Rhythm, Murmur (n) and Rub (n)
Respiratory: Wheeze (n), Rales (n), Rhonchi (n), Non-Labored Respirations and Other (ET tube)
GI: Soft and Non Distended
Neurology: Other (Lethargic, sedated on mechanical ventilation)
Skin: Good Color (No rash, no cyanosis)
General: Comfortable
Assessment
-
83-year-old female with history of palpitations, identified as having severe mitral regurgitation, normal EF, normal coronaries. She is now status post sternotomy with chordal sparing mitral valve replacement, debridement of all MAC, left atrial
appendage clip 01/31/2024. We are asked to help from critical care standpoint
S/p mitral valve replacement, 01/31/2024
Extensive debridement for MAC
Left atrial appendage clip
Severe mitral regurgitation
Normal EF, normal coronaries
Palpitations, shortness of breath
Postoperative anemia
Conditions present prior to admission
Hypertension
Anxiety disorder
Plan/recommendations
At this time, patient remains critically ill but stable
On 3 mcg of norepinephrine
Chest tube draining minimal
Remains on volume cycle ventilation, FiO2 decreased to 40%. Airway pressures adequate
Postoperative chest x-ray without acute findings, ET tube appropriate
Postoperative EKG without acute findings, paced rhythm noted
Moving forward
Continue with management per CT surgery
Postoperative hemoglobin noted 10.0. Transfusion has been ordered, follow
Chest tube output minimal at this time
Wean pressors as able
Follow blood sugars, hemoglobin, urine output
Anticipate extubation later today
Head of bed elevated, aspiration precautions
Reviewed with critical care nursing
TCCT 31 min
[2024-01-31 13:01] LABS: Glucose - Point of Care 116 mg/dl (70-99)
[2024-01-31] MEDS: LR 250 ML IV ×4 (13:08→16:18)
[2024-01-31] MEDS: TYLENOL PO ×2 (13:32→22:43)
[2024-01-31 13:38] LABS: ACT+ - POC > 1003 Seconds (82-134)
[2024-01-31 13:38] LABS: ACT+ - POC > 1003 Seconds (82-134)
[2024-01-31 13:59] LABS: Glucose - Point of Care 84 mg/dl (70-99)
[2024-01-31 14:07] LABS: ACT-LR - POC 155 Seconds (116-155)
--- NOTE | 2024-01-31 14:13 | PTCARENOTE ---
Mediastinal Chest tubes x2 output this hour 115mls; CV ROTATING FIELD ASSEMBLER at bedside, ACT 155; Levo at 4 mcg/min; LR 250ml Bolus infusing now.
[2024-01-31 14:57] LABS: Glucose - Point of Care 103 mg/dl (70-99)
--- NOTE | 2024-01-31 15:20 | PTCARENOTE ---
Mixed Venous resulted at 40; CV BONE CHAR KILN TENDER at bedside, new orders being placed for Dobutamine.
[2024-01-31 15:21] LABS: Hematocrit 25.4 % (37.0-47.0); Platelet Count 203 10^3/uL (130-400)
[2024-01-31] MEDS: DOBUTREX 500 MG 250 IV (15:29)
--- NOTE | 2024-01-31 16:09 | PTCARENOTE ---
Pt hypotensive on monitor; CV ARCH CUSHION SKIVING MACHINE OPERATOR at bedside, Epicardial wires set to DDD 80/10/0.4/0.8, 100% A/V pacing on monitor; LR 500 IV bolus given; Dobutamine and Insulin infusing see flow sheet for details; family at bedside.
[2024-01-31] MEDS: ASPIRIN 300 MG RECTAL (16:23)
[2024-01-31 16:39] LABS: Glucose - Point of Care 97 mg/dl (70-99)
[2024-01-31] MEDS: OFIRMEV 100 IV (16:40)
--- NOTE | 2024-01-31 17:05 | PTCARENOTE ---
Pt turned and repositioned; no dumping from chest tubes noted.
--- NOTE | 2024-01-31 17:30 | PTCARENOTE ---
Pt failed CPAP trail; respiratory at bedside and placed pt back on SIMV.
--- NOTE | 2024-01-31 17:53 | PTCARENOTE ---
Dr Reynolds at bedside and 1 unit PRBC ordered to be infused; blood infusing at this time.
[2024-01-31 18:14] LABS: Mixed Venous O2 Saturation 53.9 %
--- NOTE | 2024-01-31 18:27 | PTCARENOTE ---
Pacer inappropriately pacing; CV PATIENT RELATIONS COORDINATOR at bedside and pacer box turned off.
[2024-01-31 19:00] LABS: Glucose - Point of Care 124 mg/dl (70-99)
[2024-01-31] MEDS: SODIUM BICARBONATE 50 MEQ IV (19:35)
[2024-01-31] MEDS: SENOKOT-S PO (19:35)
[2024-01-31] MEDS: CALCIUM CHLORIDE 10% SYRINGE 60 MG IV ×2 (19:51→21:42)
--- NOTE | 2024-01-31 20:00 | PTCARENOTE ---
assumed care of pt from previous RN. pt intubated, drowsy, following commands appropriately. ETT 8.0, 21cm at the lip. CPAP/PSV 5/5/40%. R IJ cordis w/ swan floated to 46cm. L radial a-line. all lines leveled, zeroed, flushed. CTx3 (mediastinal x2,
R pleural) to -20cm wall suction. no air leaks noted. temp epicardial A/V wires, pulse generator connected, off. woodson catheter draining clear, yellow urine. palpable peripheral pulses. no edema noted. see worklist for complete nursing assessment,
interventions, VS, and I&Os.
[2024-01-31] MEDS: ZOFRAN 4 MG IV (20:13)
[2024-01-31 20:20] LABS: Glucose - Point of Care 90 mg/dl (70-99)
[2024-01-31 20:24] LABS: B.E. -1.7 mmol/L; Ionized Calcium 1.23 mMOL/L (1.15-1.33); O2 Saturation % 99.8 % (94-98); PCO2 38 mmHg (32-35); PO2 158 mmHg (83-108); pH 7.39 (7.35-7.45)
[2024-01-31 20:27] LABS: Mixed Venous O2 Saturation 55.6 %
[2024-01-31 20:36] LABS: Hematocrit 29.2 % (37.0-47.0); Hemoglobin 10.4 g/dL (12.0-16.0); Mean Corp Hgb Conc. 35.6 g/dL (33.0-37.0); Mean Corpuscular Hgb 32.3 pg (27.0-31.0); Mean Corpuscular Volume 90.7 fL (81.0-99.0); Mean Platelet Volume 10.2 fL (7.4-10.4); Platelet Count 145 10^3/uL (130-400); Red Blood Cell Count 3.22 10^6/uL (4.20-5.40); Red Cell Dist. Width 11.9 % (11.5-14.5); White Blood Cell Count 15.9 10^3/uL (4.8-10.8)
--- NOTE | 2024-01-31 20:45 | PTCARENOTE ---
pt extubated @ 2044 by RT Alisha. pt placed on 6 L NC. POX 100%. IS 750ml.
[2024-01-31] MEDS: ANCEF 5 IV (21:10)
[2024-01-31 22:03] LABS: Glucose - Point of Care 107 mg/dl (70-99)
[2024-01-31] MEDS: REGLAN 10 MG IV (22:44)
[2024-01-31 23:59] LABS: Glucose - Point of Care 85 mg/dl (70-99)
[2024-02-01] VITALS (58 sets, daily range): BP systolic 74–139; BP diastolic 40–106; PULSE 87; O2SAT 95–97; BMI 27.4
--- NOTE | 2024-02-01 | PTCARENOTE ---
pt A&Ox4, resting in bed. SR w/ 1st degree AVB on tele-monitor. POX 98% on [address] drainage within appropriate limits. intermittent nausea, see JUL. no c/o pain at this time.
[2024-02-01 01:56] LABS: Glucose - Point of Care 102 mg/dl (70-99)
[2024-02-01] MEDS: DILAUDID 0.25 MG IV (02:11)
[2024-02-01] MEDS: ANCEF 5 IV ×2 (03:29→11:44)
[2024-02-01] MEDS: ROXICODONE 5 MG PO ×2 (03:29→20:13)
[2024-02-01 03:52] LABS: Glucose - Point of Care 105 mg/dl (70-99)
[2024-02-01 03:58] LABS: Ionized Calcium 1.48 mMOL/L (1.15-1.33)
--- NOTE | 2024-02-01 04:00 | PTCARENOTE ---
assessment remains unchanged. CT drainage within appropriate limits. U/O <0.5ml/kg/hr, CT PA Zoey aware. AM labs collected and sent. EKG performed.
[2024-02-01 04:01] LABS: Mixed Venous O2 Saturation 55.5 %
[2024-02-01 04:02] LABS: Hematocrit 26.7 % (37.0-47.0); Hemoglobin 9.5 g/dL (12.0-16.0); Mean Corp Hgb Conc. 35.6 g/dL (33.0-37.0); Mean Corpuscular Hgb 31.8 pg (27.0-31.0); Mean Corpuscular Volume 89.3 fL (81.0-99.0); Mean Platelet Volume 10.4 fL (7.4-10.4); Platelet Count 144 10^3/uL (130-400); Red Blood Cell Count 2.99 10^6/uL (4.20-5.40); Red Cell Dist. Width 12.4 % (11.5-14.5); White Blood Cell Count 15.7 10^3/uL (4.8-10.8)
--- NOTE | 2024-02-01 04:11 | W.PN.CT ---
Today's Communication / Plan
-
Plan:
-No major issues overnight. Hemodynamically and neurologically intact
-Successfully extubated on 01/31/24 @ 2044
-Pt with labile BP postop, better this AM
-H/H 9.5/26.7 this AM, getting 1u PRBC (has received a total of 2u PRBC's postop)
-Has been off and on Levophed, off after the 2nd unit of blood, on dobutamine @3, remains on insulin per protocol
-CI 1.52 -> 1.60 -> 1.45 (should improve post blood transfusion), MVO2 55.5%, U/O since OR: 950 mL
-Monitor chest tube output: 2med 100/415, Rpl 140/260
-CXR looks clear with minimal basilar atelectasis this AM on my review. F/U official report
-Cont. current meds (ASA, Lexapro; Amiodarone and Lopressor currently on hold while on dobutamine gtt)
-Wean off dobutamine gtt as tolerated
-D/C swan and a-line once off dobutamine gtt
-Tele phase when off insulin and dobutamine gtt
-D/C woodson catheter later today
-Maintain cordis
-Maintain temporary pw (will pull in 1-2 days)
-Wean off of O2 as tolerated
-Encourage use of IS
-OOB into chair/Ambulate
Assessment / Plan
-
Assessment:
-S/p standard sternotomy with aortic and bicaval cannulation/Chordal sparing mitral valve replacement [27 mm bioprosthesis]/ Patch repair of the annulus from P1-P3 using bovine pericardium/Aggressive debridement using the CUSA device in order to
remove all of the MAC/Left atrial appendage exclusion with a 35 mm clip, by Dr. Reynolds, 01/31/24, pod#1
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
-Degenerative mitral valve disease with elements of stenosis and retracted cords, resulting in severe insufficiency
-LVEF 60-65% per intraop CHA
-Mild TR
-Chronic diastolic CHF
-HTN
-Chronic back S/p Epidural steroid injections of L2-L3 (01/29/21); L4-L5 ()
-Chronic opioid dependence
-Anxiety disorder
-Anemia
-S/P R ROSELINE (06/2020)
-S/P B/L shoulder surgery (2011)
-S/P x 4
-Acute postop blood loss anemia on chronic anemia (transfused 2u PRBC)
-Acute postop atelectasis
-Acute postop Cardiogenic shock (CI 0.85-1.52)
-Acute postop hypovolemia with subsequent hypervolemia
Discussed patient care with: Cardiology, Nursing, Respiratory Therapy, Pharmacy and Care Team
Subjective
Procedure
/p standard sternotomy with aortic and bicaval cannulation/Chordal sparing mitral valve replacement [27 mm bioprosthesis]/ Patch repair of the annulus from P1-P3 using bovine pericardium/Aggressive debridement using the CUSA device in order to
remove all of the MAC/Left atrial appendage exclusion with a 35 mm clip, by Dr. Reynolds, 01/31/24,
-
Date of Service: February 01, 2024
Pt c/o incisional pain and nausea last night, better this AM
Objective Data
-
Lab Results
02/01/24 03:45
PT 18.1 Sec (11.4-14.6) H 01/31/24 11:55
INR 1.49 01/31/24 11:55
APTT 42.8 Sec (23.4-35.0) H 01/31/24 11:55
Vital Signs
Vital Signs
Temp Pulse Resp BP Pulse Ox
98.8 F 70 14 97/53 96
02/01/24 04:00 02/01/24 04:00 02/01/24 04:00 02/01/24 04:00 02/01/24 04:00
CT Intake/Output/Weight
01/31/24 01/31/24 02/01/24
06:59 18:59 06:59
Intake Total 1666.4 / 2178.9 512.5 / 2178.9
Output Total 1100 / 1560 460 / 1560
Balance 566.4 / 618.9 52.5 / 618.9
SaO2: 96 (2L)
Physical Exam
-
General: Awake, Oriented and AOx3
Cardiovascular: Regular rate & rhythm, No Murmurs, No Rub and No Gallop
Respiratory: Decreased Breath Sounds (at bases, otherwise clear)
Sternum: Stable
Incision: Clean, Dry, Intact and Dressing Intact
Extremities: No Edema
Data Reviewed
-
Lab Results: Results Reviewed
Medications: Active Meds Reviewed
Chest X-Ray: Report Reviewed and Image Reviewed
ECG: Report Reviewed and Image Reviewed
[2024-02-01 04:12] LABS: INR 1.19; PT 15.2 Sec (11.4-14.6)
[2024-02-01 04:27] LABS: Blood Urea Nitrogen 20 mg/dl (7-17); Calcium 10.3 mg/dl (8.4-10.2); Carbon Dioxide 24 mmol/L (22-30); Chloride 109 mmol/L (98-107); Estimated Creatinine Clearance 37 ml/min; Glucose 107 mg/dl (70-99); Magnesium 2.4 mg/dl (1.6-2.3); Potassium 4.9 mmol/L (3.5-5.1); Sodium 139 mmol/L (135-145)
[2024-02-01 04:58] LABS: Glucose - Point of Care 116 mg/dl (70-99)
[2024-02-01 06:18] LABS: Glucose - Point of Care 110 mg/dl (70-99)
[2024-02-01] MEDS: TYLENOL 1000 MG PO ×3 (06:24→20:13)
[2024-02-01] MEDS: FLEXERIL 5 MG PO (06:24)
--- NOTE | 2024-02-01 07:25 | W.PN.ANS.POP ---
Anesthesia Post Operative
- Anesthesia Post Op Note
Vital Signs Stable-See Nursing Note: Yes
Airway Patent: Yes
Adequate Pain Control: Yes
Change in Mental Status: No
Current Postoperative Nausea & Vomiting: No
Anesthesia Complications: No
General Anesthetic Recall: No
Unplanned Admission: No
Post Op Hydration Adequate: Yes
[2024-02-01 07:27] LABS: Glucose - Point of Care 103 mg/dl (70-99)
[2024-02-01] MEDS: TORADOL 15 MG IV (07:57)
[2024-02-01] MEDS: LOW STRENGTH ASPIRIN 81 MG PO (07:57)
[2024-02-01] MEDS: PROTONIX 40 MG PO (07:57)
[2024-02-01] MEDS: LIDOCAINE 4% PATCH 1 PATCH TOPICAL (07:57)
--- NOTE | 2024-02-01 07:57 | W.PN.INTV ---
Today's Communication / Plan
Recommendations
Continue with dobutamine, wean as able per CT surgery protocol
Pain control, incentive spirometry
Follow blood sugars, follow hemoglobin
Chest tube management per CT surgery
Assessment
-
83-year-old female with history of palpitations, identified as having severe mitral regurgitation, normal EF, normal coronaries. She is now status post sternotomy with chordal sparing mitral valve replacement, debridement of all MAC, left atrial
appendage clip 01/31/2024. We are asked to help from critical care standpoint
S/p mitral valve replacement, 01/31/2024
Extensive debridement for MAC
Left atrial appendage clip
Severe mitral regurgitation
Normal EF, normal coronaries
Palpitations, shortness of breath
Postoperative anemia
Conditions present prior to admission
Hypertension
Anxiety disorder
Plan/recommendations
At this time, patient remains critically ill but stable
Presently on dobutamine drip
Chest tube draining minimal
Status post 2 units of blood over the last 24 hours. Chest tube output minimal
Extubated without difficulty
Postoperative EKG without acute findings, paced rhythm noted
Moving forward
Continue with management per CT surgery
Follow hemoglobin
Chest tube output minimal at this time
Received 2 units of blood
Dobutamine to be weaned per CT surgery protocol
Chest x-ray without acute findings
Follow blood sugars, hemoglobin, urine output
Head of bed elevated, aspiration precautions
Reviewed with critical care nursing
TCCT 31 min
Subjective Dataa
Subjective Data
Date of Service:
Date of Service: February 01, 2024
Subjective:
Patient appears comfortable, complaining of lightheadedness. Attempted to stand up earlier today, became hypotensive. Remains on dobutamine. Has some mild nausea, improved presently. Denies shortness of breath
Objective Data
Data Reviewed
Vital Signs / I&O / Oxygen:
Vital Signs
Temp Pulse Resp BP Pulse Ox
98.7 F 74 15 75/48 98
02/01/24 07:00 02/01/24 07:23 02/01/24 07:23 02/01/24 07:23 02/01/24 07:23
Intake and Output
01/31/24 02/01/24 02/02/24
06:59 06:59 06:59
Intake Total 2266.3 / 2296.4 30.1 / 30.1
Output Total 1620 / 1680 60 / 60
Balance 646.3 / 616.4 -29.9 / -29.9
SaO2 [CPAP/PSV] 99
SaO2 [SIMV] 100
SaO2 98
Nasal Cannula flow liters per 4
minute
Physical Exam
General: Comfortable and Other (Right IJ, chest tube, A-line)
HEENT: Normocephalic and Anicteric
Cardiovascular: S1-S2, Regular Rhythm, Murmur (n) and Rub (n)
Respiratory: Wheeze (n), Crackles (n), Rhonchi (n), Chest Tube and Other (Mild splinting)
GI: Soft, Non Distended and Non Tender
Neurology: Awake, Alert and No Motor Deficits (Moves all extremities)
Skin: Cyanosis (n), Jaundice (n) and Rash (n)
Labs/Micro/Reports
Lab Data
02/01/24 03:45
02/01/24 03:45
Laboratory Results
01/31/24 01/31/24 02/01/24
11:55 20:10 03:45
PT 18.1 H 15.2 H
INR 1.49 1.19
APTT 42.8 H
pH 7.41 7.39
pCO2 32 38 H
pO2 269 H 158 H
HCO3 20.3 L 23.0
O2 Delivery Level
[2024-02-01] MEDS: VITAMIN C 500 MG PO (07:58)
[2024-02-01] MEDS: BACTROBAN 2% OINTMENT 1 APPLIC NASAL ×2 (07:58→20:13)
[2024-02-01] MEDS: FEOSOL 325 MG PO (07:58)
[2024-02-01] MEDS: ProAmatine 10 MG PO ×3 (07:58→18:01)
[2024-02-01] MEDS: NEURONTIN 100 MG PO ×3 (07:58→20:13)
[2024-02-01] MEDS: LEXAPRO 20 MG PO (07:58)
[2024-02-01] MEDS: SENOKOT-S 1 TABLET PO ×2 (07:58→20:13)
--- NOTE | 2024-02-01 08:05 | W.PN.CD ---
Today's Communication / Plan
-
wean pressors as tolerated
ECG looks good
Volume +/- PRBC as needed today
Impression / Plan
-
Impression/Plan: 83 y/o female with HTN and severe, degenerative mitral valve regurgitation with dense MAC admitted for elective MVR.
#Severe, degenerative MVR
-Chronic.
-S/P extensive MAC debridement requiring bovine patch annuloplasty (SN [id number]), #27 Rocha Mitris Resilia chord sparing mitral valve replacement (SN [id number]) and #35 Atriclip LAAE (SN [id number]).
-Wean pressors/inotropes for a MAP > 65 mmHg, CI > 2.2 L/min/m2.
#HTN
-Now with labile BP currently mildly hypotensive
-Midodrine to start
-PA pressures 28/12 c/w volume depletion- consider another unit PRBC or NS bolus
- on dobutamine 3 and levo 1 at present
Overall looks quite good POD 1 after MVR
DATA:
Cardiac Catheterization, 12/26/2023:
CONCLUSIONS:
1. Right dominant circulation with no coronary artery disease.
2. Top normal to mildly elevated filling pressures (LVEDP = 16 mmHg, PCWP = 16 mmHg at 60.8 kg).
3. Depressed cardiac index (1.7 L/min/m�).
4. Severely elevated SVR (3247 dynes*seconds*cm^-5).
5. Dense mitral annular calcification.
6. Severe degenerative mitral regurgitation on echocardiography.
CHA, 12/21/2023:
CONCLUSIONS
Normal LV size and function with no regional wall motion abnormalities.
LVEF is 60 to 65% by visual estimation.
Normal right ventricular size and function.
Mitral annular calcification with posterior leaflet prolapse of the P2 and P3
scallops with resultant anteriorly directed severe mitral regurgitation.
Systolic flow reversal (suggestive of severe MR) in the pulmonary veins.
Compared to prior from December 10, 2023, MR remains severe.
Physical Exam
Vital Signs/Labs
Vital Signs
Temp Pulse Resp BP Pulse Ox
98.7 F 74 15 75/48 98
02/01/24 07:00 02/01/24 07:23 02/01/24 07:23 02/01/24 07:23 02/01/24 07:23
01/31/24 02/01/24 02/02/24
06:59 06:59 06:59
Actual Weight 138 lb 0.15 oz 144 lb 13.499 oz
02/01/24 03:45
02/01/24 03:45
PT 15.2 Sec (11.4-14.6) H 02/01/24 03:45
INR 1.19 02/01/24 03:45
APTT 42.8 Sec (23.4-35.0) H 01/31/24 11:55
Magnesium 2.4 mg/dl (1.6-2.3) H 02/01/24 03:45
Physical Exam
Constitutional: No acute distress
Cardiovascular: Rhythm & rate is regular, S1S2 is normal and Rub present
Respiratory: Respiratory effort normal and Rhonchi Present
GI: Non tender
Neuro/Psych: AO x 3 and Motor deficits absent
Data Reviewed
-
Date of Service: February 01, 2024
[2024-02-01 08:27] LABS: Glucose - Point of Care 108 mg/dl (70-99)
--- NOTE | 2024-02-01 08:32 | PTCARENOTE ---
Assumed care of patient at 0700. Pt is drowsy, able to answer all orientation questions correctly however is forgetful at times. Pt reporting sternal pain to be 9/10, however appears comfortable and easily falling back to sleep. Toradol administered
per order. Pt SR with HR 60's-70's. BP 102/45 MAP 57. PA pressure 26/14, CVP 10, CO 2.85, CI 1.77, SVR 1783. Pt remains on Dobutamine at 3mcg/kg/min. On and off Levo at 1mcg/min. Epicardial AV wires in place, currently off. Pulse oximetry 95% on 2L
nasal cannula. Chest tubes x3 in place, mediastinal x2 and right pleural chest tubes draining serosanguineous drainage, no sign of air leak or crepitus. Bowel sounds hypoactive, tolerated PO medications. Correia catheter remains in place draining
yellow urine. Correia care completed. Midsternal incision approximated and KIERRA. Left radial Catie intact. Right IJ Cordis and Camby-Memo catheter in place at 46cm. Pt remains on insulin gtt per glycemic protocol. Pt currently resting comfortably in bed
with call ram within reach.
--- NOTE | 2024-02-01 09:07 | PTCARENOTE ---
Right pleural chest tubes d/c'd per order. Chest tube dressing changed.
[2024-02-01 10:02] LABS: Glucose - Point of Care 128 mg/dl (70-99)
--- NOTE | 2024-02-01 10:30 | PTCARENOTE ---
Attempted to get pt OOB to chair. BP 80/55 MAP 64. Pt stated to feel dizzy, weak and nauseous. Pt assisted back to lying in bed. BP 118/56 MAP 72.
[2024-02-01] MEDS: NSS IV (10:48)
[2024-02-01] MEDS: LR 250 IV ×2 (12:14→22:10)
[2024-02-01 12:18] LABS: Glucose - Point of Care 123 mg/dl (70-99)
--- NOTE | 2024-02-01 12:21 | PTCARENOTE ---
Pt continues to require Levo at 1 -2 mcg/min. Pt remains on Dobutamine at 3mcg/kg/min. Urine output 10-20ml/hr. CT STEWARD/STEWARDESS THIRD, Isa made aware. 250mL LR bolus administered per order. BP currently 123/48 MAP 67. PA 28/11, CVP 14, CO 3.24, CI 2.01, SVR
1357. Remains SR with HR 70's. Pulse oximetry 95% on 2L nasal cannula.
[2024-02-01] MEDS: FERRLECIT 110 MG IV (13:39)
[2024-02-01] MEDS: PITRESSIN 100 IV (14:00)
--- NOTE | 2024-02-01 14:00 | PTCARENOTE ---
Assumed care of patient. Walking rounds completed with previous RN. pt assessed while she was lying in bed. Pt drowsy but oriented x 4. SANTIAGO, weak. Sinus arrhythmia with rates currently in the 90s. BP stable 122/48. CI 2.06. PA pressures 30s/10s. CVP
10s. Dobutamine 3mcg/kg/min, Vaso initiated 0.01units/hour. POX 97% on RA. Lungs diminished in the bases. No cough noted. Mediastinal chest tubes x2 y-sited to 1 atrium to -20cm suction draining serosanguinous drainage. Abdomen soft, nontender. +BS.
Pt reports passing gas. Correia draining inadequate amounts of clear yellow urine, CT REFRIGERATION OPERATOR notified. Sternal incision approximated, with skin glue, ecchymosis. Chest tube sites covered, CDI. Right IJ cordis intact with swan floated to 46cm. Left radial
shell intact. All lines flushed leveled and zeroed. PIV intact.
[2024-02-01] MEDS: DOBUTREX 500 MG 250 IV (18:06)
--- NOTE | 2024-02-01 20:00 | PTCARENOTE ---
assumed care of pt from previous RN. pt A&Ox4, resting in bed at time of assessment. R IJ cordis w/ swan floated to 46cm. L radial a-line. all lines leveled, zeroed, flushed. sinus arrhythmia on tele-monitor. palpable peripheral pulses. temp
epicardial A/V wires plugged into pulse generator, off. trace, non-pitting edema in b/l pedals. CTx2 (mediastinal) to -20cm wall suction, no air leaks noted. POX 91-93% on 5 L NC. IS encouraged. abd s/n, +BS. no c/o nausea. tolerating PO meds. woodson
catheter draining clear, yellow urine. sternal incision approximated w/ surgi-glue, local ecchymosis. PIV intact. see worklist for complete nursing assessment, interventions, VS, and I&Os.
[2024-02-01 22:19] LABS: Mixed Venous O2 Saturation 69.4 %
--- NOTE | 2024-02-01 23:00 | PTCARENOTE ---
report received from previous RN, assumed care of pt, walking rounds done. pt in bed, sleeping. NSR monitor, HR 60's. B/L radial and DP pulses palpable. heart tones clear. RIJ cordis + swan intact w KVOs infusing. last CI 1.67. Dobut gtt infusing @
2mcg. Vaso gtt infusing @ 0.01mcg. CVP ~10. PAPs ~30s/10s. left radial art line intact. SBP 110s. epicardial wires intact and off. B/L breath sounds present. POX 93% on 4LNC. IS encouraged. CT x2 intact to -20cm wall suction, drainage WNL, no air
leak present. bowel sounds present. woodson catheter intact, draining CYU, UO adequate. all surgical sites stable. see worklist for full assessment, VS, and interventions. pt sleeping between care.
[2024-02-02] VITALS (42 sets, daily range): BP systolic 95–157; BP diastolic 40–79; PULSE 88; O2SAT 4; BMI 27.5
[2024-02-02] MEDS: FLEXERIL 5 MG PO ×3 (00:57→21:07)
[2024-02-02] MEDS: DILAUDID 0.25 MG IV (00:57)
[2024-02-02 01:17] LABS: Mixed Venous O2 Saturation 55.3 %
--- NOTE | 2024-02-02 03:30 | PTCARENOTE ---
no acute changes. NSR 80s. SBP 120s. Dobut remains @ 2cmg. Vaso remains @ 0.01mcg. last CI 2.17. POX 93% on 4LNC. CT output WNL. CT PA aware of UO. all surgical sites stable. AM labs drawn and sent. pt sleeping between care.
[2024-02-02 03:53] LABS: Hemoglobin 9.3 g/dL (12.0-16.0); Mean Corp Hgb Conc. 34.4 g/dL (33.0-37.0); Mean Corpuscular Hgb 32.3 pg (27.0-31.0); Mean Corpuscular Volume 93.8 fL (81.0-99.0); Red Blood Cell Count 2.88 10^6/uL (4.20-5.40); Red Cell Dist. Width 13.1 % (11.5-14.5); White Blood Cell Count 13.6 10^3/uL (4.8-10.8)
[2024-02-02 04:07] LABS: Mean Platelet Volume 10.7 fL (7.4-10.4); Platelet Count 79 10^3/uL (130-400)
[2024-02-02 04:15] LABS: Blood Urea Nitrogen 31 mg/dl (7-17); Calcium 9.2 mg/dl (8.4-10.2); Carbon Dioxide 20 mmol/L (22-30); Chloride 107 mmol/L (98-107); Estimated Creatinine Clearance 38 ml/min; Glucose 132 mg/dl (70-99); Potassium 4.7 mmol/L (3.5-5.1); Sodium 137 mmol/L (135-145)
--- NOTE | 2024-02-02 05:31 | W.PN.CT ---
Today's Communication / Plan
-
-pod #2
-no issues overnight, pleasant, A&O x4
-gave 250 LR
-CI 2.17, CO 3.50. mVO2 55-69 overnight. Drips: Dobut 2.5, Vaso 0.01.
-CT output: 2 meds 85/170 in 12/24 hrs
-platelets trended down - 79K today (144 on 01/31)- follow
-maintain swan/a-line/Correia/pw
-UO about 15-20 cc/hr. Cr stable - 1.0 today (0.9 preop) - follow.
-current meds (ASA, Midodrine 10 tid, Protonix, vit C, Feosol, Lexapro). Holding BB and Amio while on Dobut
-encourage IS, OOB
Assessment / Plan
-
Assessment:
-S/p standard sternotomy with aortic and bicaval cannulation/Chordal sparing mitral valve replacement [27 mm bioprosthesis]/ Patch repair of the annulus from P1-P3 using bovine pericardium/Aggressive debridement using the CUSA device in order to
remove all of the MAC/Left atrial appendage exclusion with a 35 mm clip, by Dr. Reynolds, 01/31/24, pod#2
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
-Degenerative mitral valve disease with elements of stenosis and retracted cords, resulting in severe insufficiency
-LVEF 60-65% per intraop CHA
-Mild TR
-Chronic diastolic CHF
-HTN
-Chronic back S/p Epidural steroid injections of L2-L3 (01/29/21); L4-L5 ()
-Chronic opioid dependence
-Anxiety disorder
-Anemia
-S/P R ROSELINE (06/2020)
-S/P B/L shoulder surgery (2011)
-S/P x 4
-Acute postop blood loss anemia on chronic anemia (transfused 2u PRBC)
-Acute postop atelectasis
-Acute postop Cardiogenic shock (CI 0.85-1.52)
-Acute postop vasoplegia/ distributive shock
-Acute postop hypovolemia with subsequent hypervolemia
Discussed patient care with: Nursing and Care Team
Subjective
Procedure
/p standard sternotomy with aortic and bicaval cannulation/Chordal sparing mitral valve replacement [27 mm bioprosthesis]/ Patch repair of the annulus from P1-P3 using bovine pericardium/Aggressive debridement using the CUSA device in order to
remove all of the MAC/Left atrial appendage exclusion with a 35 mm clip, by Dr. Reynolds, 01/31/24,
-
Date of Service: February 02, 2024
Objective Data
-
Lab Results
02/02/24 03:27
PT 15.2 Sec (11.4-14.6) H 02/01/24 03:45
INR 1.19 02/01/24 03:45
APTT 42.8 Sec (23.4-35.0) H 01/31/24 11:55
Vital Signs
Vital Signs
Temp Pulse Resp BP Pulse Ox
98.5 F 88 15 116/48 94
02/02/24 03:00 02/02/24 03:30 02/02/24 03:30 02/02/24 03:00 02/02/24 03:30
CT Intake/Output/Weight
02/01/24 02/01/24 02/02/24
06:59 18:59 06:59
Intake Total 599.9 / 2296.4 870.2 / 1205.6 335.4 / 1205.6
Output Total 520 / 1680 320 / 455 135 / 455
Balance 79.9 / 616.4 550.2 / 750.6 200.4 / 750.6
SaO2: 94
Physical Exam
-
General: AOx3
Cardiovascular: Regular rate & rhythm, No Murmurs and No Rub
Respiratory: Rales (at bases) and Decreased Breath Sounds
Sternum: Stable
Incision: Clean, Dry and Intact
Extremities: Edema +1 (2+DPs b/l)
Abdomen: soft, nontender, nondistended, +decreased bowel sounds
Data Reviewed
-
Lab Results: Results Reviewed
Medications: Active Meds Reviewed
Chest X-Ray: Report Reviewed and Image Reviewed
ECG: Report Reviewed and Image Reviewed
[2024-02-02] MEDS: TYLENOL 1000 MG PO ×3 (05:42→21:07)
[2024-02-02] MEDS: ROXICODONE 2.5 MG PO (05:43)
--- NOTE | 2024-02-02 06:22 | W.PN.INTV ---
Today's Communication / Plan
Recommendations
remains on dobutamine/vasopressin, being weaned per CT surgery
Cardiac index improved
Follow-up platelets
White count trending down, remains afebrile
Incentive spirometry, cough clearance, out of bed to chair as able
Amiodarone/beta-dano remains on hold
Assessment
-
83-year-old female with history of palpitations, identified as having severe mitral regurgitation, normal EF, normal coronaries. She is now status post sternotomy with chordal sparing mitral valve replacement, debridement of all MAC, left atrial
appendage clip 01/31/2024. We are asked to help from critical care standpoint
S/p mitral valve replacement, 01/31/2024
Extensive debridement for MAC
Left atrial appendage clip
Severe mitral regurgitation
Normal EF, normal coronaries
Palpitations, shortness of breath
Postoperative anemia
Conditions present prior to admission
Hypertension
Anxiety disorder
Plan/recommendations
At this time, patient remains critically ill but stable
Presently on dobutamine drip, vasopressin. Unable to wean off vasopressin per CT surgery team, systolic in 80s
Chest tube draining minimal
Status post 2 units of blood over the last 2 days, hemoglobin stable
EKG this morning, sinus rhythm, first-degree AV block
Moving forward
Continue with management per CT surgery
Follow hemoglobin appears stable
Chest tube output minimal at this time
Primary issue presently is hypotension
PASP 29, RAP 12, CI 2.17 which is the best that it has been
Continue weaning per CT surgery
Midodrine also started
Amiodarone, metoprolol held
Chest x-ray without acute findings
94% on 4 L
Incentive spirometry, airway clearance, out of bed to chair as able
Hemoglobin appears to be stable
Platelets decreased to 79
Mild white count, trending down
Preprocedure UA negative
Follow closely for any occult infection
Head of bed elevated, aspiration precautions
Reviewed with critical care nursing, CT surgery PA
TCCT 31 min
Subjective Dataa
Subjective Data
Date of Service:
Date of Service: February 02, 2024
Subjective:
Patient with a variety complaints, predominantly pain. She is complaining of back pain, chest pain, leg pain. She denies nausea, lightheadedness. She remains critically ill on pressors, now on vasopressin 0.01 and dobutamine. Per discussion with
CT surgery PA, blood pressure decreased upon discontinuing vasopressin, systolic in the 80s
Objective Data
Data Reviewed
Vital Signs / I&O / Oxygen:
Vital Signs
Temp Pulse Resp BP Pulse Ox
98.7 F 85 13 118/60 93
02/02/24 05:00 02/02/24 05:00 02/02/24 05:00 02/02/24 05:00 02/02/24 05:00
Intake and Output
01/31/24 02/01/24 02/02/24
06:59 06:59 06:59
Intake Total 2266.3 / 2296.4 1233.3 / 1233.3
Output Total 1620 / 1680 585 / 585
Balance 646.3 / 616.4 648.3 / 648.3
SaO2 [CPAP/PSV] 99
SaO2 [SIMV] 100
SaO2 93
Nasal Cannula flow liters per 4
minute
Physical Exam
General: Comfortable and Other (Right IJ, chest tube, A-line)
HEENT: Normocephalic and Anicteric
Cardiovascular: S1-S2, Regular Rhythm, Murmur (n) and Rub (n)
Respiratory: Wheeze (n), Crackles (n), Rhonchi (n), Chest Tube and Other (Mild splinting)
GI: Soft, Non Distended and Non Tender
Neurology: Awake, Alert and No Motor Deficits (Moves all extremities, generally weak)
Skin: Cyanosis (n), Jaundice (n) and Rash (n)
Labs/Micro/Reports
Lab Data
02/02/24 03:27
02/02/24 03:27
--- NOTE | 2024-02-02 06:53 | W.PN.CD ---
Today's Communication / Plan
-
Furosemide 40 mg IV x1 and monitor.
Incentive spirometry.
Ambulation.
Chest tube management per CTS.
Impression / Plan
-
Impression/Plan: 83 y/o female with HTN and severe, degenerative mitral valve regurgitation with dense MAC admitted for elective MVR.
#Severe, degenerative MVR
-Chronic.
-S/P extensive MAC debridement requiring bovine patch annuloplasty (SN [id number]), #27 Rocha Mitris Resilia chord sparing mitral valve replacement (SN [id number]) and #35 Atriclip LAAE (SN [id number]).
-Wean pressors/inotropes for a MAP > 65 mmHg, CI > 2.2 L/min/m2.
-Encourage incentive spirometry and ambulation.
-Pain/chest tube management per CT surgery.
-Wean dobutamine for CI > 1.9.
-She remains on 4LNC and weight is up. She may be ready for some gentle diuresis.
-Give furosemide 40 mg IV x1 and monitor.
#HTN
-Chronic, stable.
-We will adjust medications as needed post op.
Subjective/Interval History:
No acute events.
Dobutamine down to 2 mcg/kg/min.
Weight is up 3.5 kg from baseline.
CI 1.6-2.2.
SaO2 93% on 4LNC.
PA = 26/10.
RA = 12.
DATA:
Cardiac Catheterization, 12/26/2023:
CONCLUSIONS:
1. Right dominant circulation with no coronary artery disease.
2. Top normal to mildly elevated filling pressures (LVEDP = 16 mmHg, PCWP = 16 mmHg at 60.8 kg).
3. Depressed cardiac index (1.7 L/min/m�).
4. Severely elevated SVR (3247 dynes*seconds*cm^-5).
5. Dense mitral annular calcification.
6. Severe degenerative mitral regurgitation on echocardiography.
CHA, 12/21/2023:
CONCLUSIONS
Normal LV size and function with no regional wall motion abnormalities.
LVEF is 60 to 65% by visual estimation.
Normal right ventricular size and function.
Mitral annular calcification with posterior leaflet prolapse of the P2 and P3
scallops with resultant anteriorly directed severe mitral regurgitation.
Systolic flow reversal (suggestive of severe MR) in the pulmonary veins.
Compared to prior from December 10, 2023, MR remains severe.
Physical Exam
Vital Signs/Labs
Vital Signs
Temp Pulse Resp BP Pulse Ox
37.1 C 85 13 118/60 93
02/02/24 05:00 02/02/24 05:00 02/02/24 05:00 02/02/24 05:00 02/02/24 05:00
01/31/24 02/01/24 02/02/24
11:59 11:59 11:59
Actual Weight 62.6 kg 65.7 kg 66.1 kg
02/02/24 03:27
02/02/24 03:27
PT 15.2 Sec (11.4-14.6) H 02/01/24 03:45
INR 1.19 02/01/24 03:45
APTT 42.8 Sec (23.4-35.0) H 01/31/24 11:55
Magnesium 2.0 mg/dl (1.6-2.3) 02/02/24 03:27
Physical Exam
Constitutional: No acute distress and Comfortable
EENT: Anicteric and Moist mucous membranes
Cardiovascular: Rhythm & rate is regular, S1S2 is normal and Murmur/rub/gallop absent
Respiratory: Respiratory effort normal and Other (Decreased throughout.)
GI: Soft, Distention absent, Flat, Non tender and Normal bowel sounds
Neuro/Psych: AO x 3
Data Reviewed
-
Date of Service: February 02, 2024
Medical Decision Making: Reviewed Test Results, Independent Historian Assessment, Test Interpretation and Review of Case with other Provider
EKG: Tracing Personally Visualized and interpreted and Report Reviewed by me
Echo: Report Reviewed by me
X-Ray/CT/US/MRI/NUC/PET: Image Personally Visualized and interpreted and Report Reviewed by me
Medical Tests (PFT, Pathology etc): Image Personally Visualized and interpreted and Report Reviewed by me
Labs: Labs Reviewed by me
Old Records: Reviewed
--- NOTE | 2024-02-02 08:30 | PTCARENOTE ---
Resumed care of patient. Walking rounds completed. Pt assessed while she was lying in bed. Pt alert and oriented x4. Pt rates back and sternal pain 8/10. Denies nausea and shortness of breath. SANTIAGO with equal strength throughout. Sinus arrhythmia
with 1st degree AVB with rates in the 70s. BP 121/52. CI 1.91. PA pressures 20s30s/10s. CVP 13. Bilateral radial and DP pulses palpable. Generalized +2 edema. Epicardial AV wires to temp pacer box, turned off. POX 95% on 4L NC. Lungs diminished in
the bases. Mediastinal chest tubes x2 to 1 atrium to -20cm suction draining serosanguineous fluid. No air leak, tidaling, or crepitus noted. CDB and IS encouraged. Abdomen soft, nontender. +BS. +gas. Correia catheter intact draining clear frederic urine.
Sternal incision approximated with skin glue, ecchymotic. Chest tube site CDI. Right IJ cordis and swan floated to 46cm. Left radial shell intact. Right AC 18g PIV intact. See MAR for medication administration. See worklist for complete nursing
assessment. Plan of care reviewed and pt in agreement.
[2024-02-02] MEDS: FLEXBUMIN 100 IV ×2 (08:45→17:07)
[2024-02-02] MEDS: BACTROBAN 2% OINTMENT 1 APPLIC NASAL ×2 (08:45→19:41)
[2024-02-02] MEDS: FLUSH (NSS) 1 FLUSH IV (08:45)
[2024-02-02] MEDS: NSS 500 IV (08:45)
[2024-02-02] MEDS: ProAmatine 10 MG PO ×3 (08:47→17:04)
[2024-02-02] MEDS: LIDOCAINE 4% PATCH 1 PATCH TOPICAL (08:47)
[2024-02-02] MEDS: FEOSOL 325 MG PO (08:47)
[2024-02-02] MEDS: LOW STRENGTH ASPIRIN 81 MG PO (08:47)
[2024-02-02] MEDS: LEXAPRO 20 MG PO (08:47)
[2024-02-02] MEDS: NEURONTIN 100 MG PO ×3 (08:47→21:07)
[2024-02-02] MEDS: SENOKOT-S 1 TABLET PO ×2 (08:47→19:40)
[2024-02-02] MEDS: PROTONIX 40 MG PO (08:47)
[2024-02-02] MEDS: VITAMIN C 500 MG PO (08:47)
--- NOTE | 2024-02-02 09:15 | PTCARENOTE ---
Epicardial AV wires cut by CT CHILDREN'S CHOIR DIRECTOR. Mediastinal chest tubes d/c per orders. Vaseline gauze, gauze, and ABD applied. Pt tolerated. Right IJ swan and left radial shell d/c. Pt tolerated. Pt assisted OOB with 2 assist. Pt tolerated.
[2024-02-02 09:40] LABS: Mixed Venous O2 Saturation 71.5 %
--- NOTE | 2024-02-02 10:00 | W.PN.UPDATE ---
Update Note
Progress Note Update
Patient has not required pacing wires. There has been no bradycardia, arrhythmias, complete heart block, or significant pauses.
Site was cleansed with CHG throughly.
1 Atrial and 1 ventricular epicardial pacing wires were cut at the skin. Bedrest x1 hour and VS [id number] x 4.
Cheyenne GUAN
Cardiac Surgery
--- NOTE | 2024-02-02 11:12 | CM ---
Reviewed chart. Met with Mrs. Melton to review discharge plans. She states she is feeling well. She states prior to admission she resides in a two story home without any steps to enter. She states her one daughter is currently staying with her
but she works outside the home. She states he other daughter took FLA and will be also available to stay with her and assist in her care if needed. She states she has to go up a full flight of steps to get to bedroom/full bathroom. She states she
has a powder room on the first floor. She states prior to admission she was independent with ambulation and adls. She states she has a prescription plan. We reviewed a home visit by the Cardiothoracic Transitional Care Nurse. She is agreeable to
a home visit. Medical work-up in progress. The discharge plan is to return home with her daughters and a home visit by the Cardiothoracic Transitional Care Nurse when medically stable.
--- NOTE | 2024-02-02 12:00 | PTCARENOTE ---
Assumed care of the patient, OOB to the chair. Patient oriented x4. Mild discomfort in LEs from edema. Sinus arrhythmia on the monitor, HR 70-80's, +1-2 generalized edema with +2 nonpitting lower extremity edema. On 3LNC, satting 95-96%, no SOB
reported, patient with shallow breaths, IS encouraged, education reenforcement provided, volume achieved 500. Lungs diminished at the bases. + BS, round abdomen, SNT, no BM since 01/29, patient reports passing flatus. Correia catheter in place draining
clear, yellow urine. Midline sternal incision CDI, ecchymotic. CT site dressings CDI. Del Rey removal dressing CDI. RIJ Cordis in place, infusing dobutamine, vaso, and KVO. VSS. See worklist for titration/dosing details.
[2024-02-02] MEDS: LASIX 40 MG IV (12:16)
[2024-02-02] MEDS: FERRLECIT 110 MG IV (13:44)
--- NOTE | 2024-02-02 16:00 | PTCARENOTE ---
No changes to patient assessment. VSS, Dobutamine infusing through Cordis. No complaints of pain, patient sitting in the chair, assessment of needs ongoing.
[2024-02-02] MEDS: COUMADIN 1 MG PO (17:06)
[2024-02-02 17:34] LABS: Mixed Venous O2 Saturation 57.8 %
[2024-02-02] MEDS: ROXICODONE 5 MG PO ×2 (18:05→22:12)
--- NOTE | 2024-02-02 19:20 | PTCARENOTE ---
Care continued. Patient c/o some pain after coughing, Oxycodone given, pain decreased to 7 at repeat assessment per patient. Patient OOB to chair, daughter at bedside. Pain management via PO medication education provided, questions encouraged, none
indicated at this time. Assessment of needs ongoing. Call ram within reach.
--- NOTE | 2024-02-02 23:00 | PTCARENOTE ---
report received from previous RN, assumed care of pt, walking rounds done. pt in bed, sleeping. SR/SA on monitor, HR 70s-80s. B/L radial and DP pulses palpable. heart tones clear. Dobut gtt infusing @ 1mcg via RIJ cordis. B/L breath sounds present.
POX 91-93% on 3LNC. IS encouraged. bowel sounds present. woodson catheter intact, draining CYU, UO adequate. all surgical sites stable. see worklist for full assessment, VS, and interventions.
[2024-02-03] VITALS (45 sets, daily range): BP systolic 60–159; BP diastolic 37–78; PULSE 75; O2SAT 94; BMI 27.6
[2024-02-03] MEDS: FLEXBUMIN 100 IV (00:46)
[2024-02-03] MEDS: DILAUDID 0.25 MG IV ×2 (02:59→22:53)
--- NOTE | 2024-02-03 03:00 | PTCARENOTE ---
no acute changes in assessment, VSS. SR/SA 70s. POX 93-95% on 3LNC. UO ~20/hr, CT PA aware. Dobut gtt remains @ 1mcg. all surgical sites stable. AM labs drawn and sent. pt resting between care.
[2024-02-03 03:30] LABS: Hematocrit 21.9 % (37.0-47.0); Hemoglobin 7.7 g/dL (12.0-16.0); Mean Corp Hgb Conc. 35.2 g/dL (33.0-37.0); Mean Corpuscular Hgb 32.4 pg (27.0-31.0); Mean Platelet Volume 10.6 fL (7.4-10.4); Platelet Count 71 10^3/uL (130-400); Red Blood Cell Count 2.38 10^6/uL (4.20-5.40); Red Cell Dist. Width 13.2 % (11.5-14.5); White Blood Cell Count 12.9 10^3/uL (4.8-10.8)
[2024-02-03 03:34] LABS: INR 1.28; PT 16.1 Sec (11.4-14.6)
[2024-02-03 03:39] LABS: Blood Urea Nitrogen 32 mg/dl (7-17); Calcium 9.3 mg/dl (8.4-10.2); Carbon Dioxide 26 mmol/L (22-30); Chloride 101 mmol/L (98-107); Estimated Creatinine Clearance 43 ml/min; Glucose 103 mg/dl (70-99); Magnesium 1.9 mg/dl (1.6-2.3); Sodium 135 mmol/L (135-145); eGFR > 60.00
--- NOTE | 2024-02-03 06:37 | W.PN.CT ---
Today's Communication / Plan
-
-pod#3
-drips: Dobut 1
-h/h 7.7/21.9 this am. Pt nearly passed when was trying to get out of bed this am - SBP was 60s- got 250 Nss, will give 1 pRBC today
-consider diuresis after transfusion
-encourage IS, OOB
Assessment / Plan
-
Assessment:
-S/p standard sternotomy with aortic and bicaval cannulation/Chordal sparing mitral valve replacement [27 mm bioprosthesis]/ Patch repair of the annulus from P1-P3 using bovine pericardium/Aggressive debridement using the CUSA device in order to
remove all of the MAC/Left atrial appendage exclusion with a 35 mm clip, by Dr. Reynolds, 01/31/24, pod#3
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
-Degenerative mitral valve disease with elements of stenosis and retracted cords, resulting in severe insufficiency
-LVEF 60-65% per intraop CHA
-Mild TR
-Chronic diastolic CHF
-HTN
-Chronic back S/p Epidural steroid injections of L2-L3 (01/29/21); L4-L5 ()
-Chronic opioid dependence
-Anxiety disorder
-Anemia
-S/P R ROSELINE (06/2020)
-S/P B/L shoulder surgery (2011)
-S/P x 4
-Acute postop blood loss anemia on chronic anemia (transfused 2u PRBC)
-Acute postop atelectasis
-Acute postop Cardiogenic shock (CI 0.85-1.52)
-Acute postop vasoplegia/ distributive shock
-Acute postop hypovolemia with subsequent hypervolemia
Discussed patient care with: Nursing and Care Team
Subjective
Procedure
/p standard sternotomy with aortic and bicaval cannulation/Chordal sparing mitral valve replacement [27 mm bioprosthesis]/ Patch repair of the annulus from P1-P3 using bovine pericardium/Aggressive debridement using the CUSA device in order to
remove all of the MAC/Left atrial appendage exclusion with a 35 mm clip, by Dr. Reynolds, 01/31/24,
-
Date of Service: February 03, 2024
Objective Data
-
Lab Results
02/03/24 02:59
02/03/24 02:59
PT 16.1 Sec (11.4-14.6) H 02/03/24 02:59
INR 1.28 02/03/24 02:59
APTT 42.8 Sec (23.4-35.0) H 01/31/24 11:55
Vital Signs
Vital Signs
Temp Pulse Resp BP Pulse Ox
98.4 F 78 23 114/57 93
02/03/24 03:00 02/03/24 03:00 02/03/24 03:00 02/03/24 03:00 02/03/24 03:00
CT Intake/Output/Weight
02/02/24 02/02/24 02/03/24
06:59 18:59 06:59
Intake Total 418.5 / 1316.4 944.8 / 1391.9 447.1 / 1391.9
Output Total 280 / 640 1150 / 1360 210 / 1360
Balance 138.5 / 676.4 -205.2 / 31.9 237.1 / 31.9
SaO2: 93
Physical Exam
-
General: Awake and AOx3
Cardiovascular: Regular rate & rhythm, No Murmurs and No Rub
Respiratory: Decreased Breath Sounds
Sternum: Stable
Incision: Clean, Dry and Intact
Extremities: Other (trace edema b/l)
Data Reviewed
-
Lab Results: Results Reviewed
Medications: Active Meds Reviewed
Chest X-Ray: Report Reviewed and Image Reviewed
ECG: Report Reviewed and Image Reviewed
[2024-02-03] MEDS: TYLENOL PO (07:01)
--- NOTE | 2024-02-03 08:11 | W.PN.CD ---
Today's Communication / Plan
-
Hold further diuresis today.
Check limited echo and allow to re-equilibrate.
Check peripheral smear, reticulocytes and FSP.
Agree with transfusion.
Impression / Plan
-
Impression/Plan: 83 y/o female with HTN and severe, degenerative mitral valve regurgitation with dense MAC admitted for elective MVR.
#Severe, degenerative MVR
-Chronic.
-S/P extensive MAC debridement requiring bovine patch annuloplasty (SN [id number]), #27 Rocha Mitris Resilia chord sparing mitral valve replacement (SN [id number]) and #35 Atriclip LAAE (SN [id number]).
-Wean pressors/inotropes for a MAP > 65 mmHg, CI > 2.2 L/min/m2.
-Encourage incentive spirometry and ambulation.
-Pain/chest tube management per CT surgery.
-Wean dobutamine for CI > 1.9.
-Hold further diuresis today and allow her to re-equilibrate. She seems exquisitely sensitive to volume.
-Limited TTE to evaluate for LV function, pericardial fluid.
-Is there possible vasoplegia from anesthesia? She did not require midodrine as an outpatient.
#Heme
-Acute blood loss anemia, secondary to surgery.
-Acute thrombocytopenia.
-INR 1.28.
-Agree with transfusion.
-Check peripheral smear, reticulocytes, FSP.
-No obvious coagulopathy or outward signs of bleeding.
#HTN
-Chronic, stable.
-Currently hypotensive, requiring midodrine and dobutamine.
Subjective/Interval History:
Orthostatic (with hypotension, near syncope).
Remains on dobutamine and midodrine.
H/H has fallen to < 7. Platelets now 71k. Transfusion ordered.
Weight stable from yesterday.
SaO2 93% on 3LNC.
She received one dose of furosemide 40 mg IV yesterday, one dose of bumetanide this morning.
She feels better after chest tube removal.
DATA:
Cardiac Catheterization, 12/26/2023:
CONCLUSIONS:
1. Right dominant circulation with no coronary artery disease.
2. Top normal to mildly elevated filling pressures (LVEDP = 16 mmHg, PCWP = 16 mmHg at 60.8 kg).
3. Depressed cardiac index (1.7 L/min/m�).
4. Severely elevated SVR (3247 dynes*seconds*cm^-5).
5. Dense mitral annular calcification.
6. Severe degenerative mitral regurgitation on echocardiography.
CHA, 12/21/2023:
CONCLUSIONS
Normal LV size and function with no regional wall motion abnormalities.
LVEF is 60 to 65% by visual estimation.
Normal right ventricular size and function.
Mitral annular calcification with posterior leaflet prolapse of the P2 and P3
scallops with resultant anteriorly directed severe mitral regurgitation.
Systolic flow reversal (suggestive of severe MR) in the pulmonary veins.
Compared to prior from December 10, 2023, MR remains severe.
Physical Exam
Vital Signs/Labs
Vital Signs
Temp Pulse Resp BP Pulse Ox
36.9 C 75 19 128/65 93
02/03/24 03:00 02/03/24 06:30 02/03/24 06:30 02/03/24 06:18 02/03/24 06:40
02/01/24 02/02/24 02/03/24
11:59 11:59 11:59
Actual Weight 65.7 kg 66.1 kg 66.2 kg
02/03/24 02:59
02/03/24 02:59
PT 16.1 Sec (11.4-14.6) H 02/03/24 02:59
INR 1.28 02/03/24 02:59
APTT 42.8 Sec (23.4-35.0) H 01/31/24 11:55
Magnesium 1.9 mg/dl (1.6-2.3) 02/03/24 02:59
Physical Exam
Constitutional: No acute distress and Comfortable
EENT: Anicteric and Moist mucous membranes
Cardiovascular: Rhythm & rate is regular, Pedal edema is absent, JVD pressure is normal, S1S2 is normal and Murmur/rub/gallop absent
Respiratory: Respiratory effort normal and Other (Decreased at bases.)
GI: Soft, Distention absent, Flat, Non tender and Normal bowel sounds
Neuro/Psych: AO x 3
Data Reviewed
-
Date of Service: February 03, 2024
Medical Decision Making: Reviewed Test Results, Independent Historian Assessment, Test Interpretation and Review of Case with other Provider
EKG: Tracing Personally Visualized and interpreted and Report Reviewed by me
Echo: Report Reviewed by me
X-Ray/CT/US/MRI/NUC/PET: Image Personally Visualized and interpreted and Report Reviewed by me
Medical Tests (PFT, Pathology etc): Report Reviewed by me
Labs: Labs Reviewed by me
Old Records: Reviewed
[2024-02-03] MEDS: LEXAPRO 20 MG PO (08:21)
[2024-02-03] MEDS: NEURONTIN 100 MG PO ×3 (08:21→22:10)
[2024-02-03] MEDS: LOW STRENGTH ASPIRIN 81 MG PO (08:21)
[2024-02-03] MEDS: FEOSOL 325 MG PO (08:21)
[2024-02-03] MEDS: VITAMIN C 500 MG PO (08:21)
[2024-02-03] MEDS: ProAmatine 10 MG PO ×3 (08:22→17:27)
[2024-02-03] MEDS: SENOKOT-S 1 TABLET PO ×2 (08:22→20:11)
[2024-02-03] MEDS: MAGNESIUM OXIDE 500 MG PO ×2 (08:22→20:11)
[2024-02-03] MEDS: LIDOCAINE 4% PATCH 1 PATCH TOPICAL (08:22)
[2024-02-03] MEDS: BACTROBAN 2% OINTMENT 1 APPLIC NASAL ×2 (08:23→20:10)
--- NOTE | 2024-02-03 08:30 | PTCARENOTE ---
Assumed care of patient at 0700. Pt is awake, alert, and oriented. Pt with complaints of midsternal pain, PRN Tylenol and Flexeril administered. Pt remains SR with HR 70's-80's. BP 110/62 MAP 76. Dobutamine gtt 1mcg/kg/min now off per order. Pulse
oximetry 92% on 6L nasal cannula. Pt tolerating PO diet. Correia catheter in place draining yellow urine. Correia care completed. Midsternal incision approximated and [employer]IVER. Right IJ cordis in place with KVO. Pt currently resting comfortably in bed.
[2024-02-03] MEDS: TYLENOL 650 MG PO (08:35)
[2024-02-03] MEDS: FLEXERIL 5 MG PO (08:35)
[2024-02-03] MEDS: PROTONIX 40 MG PO (08:35)
[2024-02-03] MEDS: BUMEX 2 MG IV ×2 (08:36→14:36)
[2024-02-03] MEDS: NSS IV (08:36)
--- NOTE | 2024-02-03 10:22 | W.PN.INTV ---
Today's Communication / Plan
Recommendations
Status post transfusion this morning
Beta-dano, amiodarone remain held
Warfarin started
Observed ambulating with physical therapy, mild lightheadedness
Once transferred to telemetry, we will sign off. Please call with questions
Assessment
-
83-year-old female with history of palpitations, identified as having severe mitral regurgitation, normal EF, normal coronaries. She is now status post sternotomy with chordal sparing mitral valve replacement, debridement of all MAC, left atrial
appendage clip 01/31/2024. We are asked to help from critical care standpoint
S/p mitral valve replacement, 01/31/2024
Extensive debridement for MAC
Left atrial appendage clip
Severe mitral regurgitation
Normal EF, normal coronaries
Palpitations, shortness of breath
Postoperative anemia
Conditions present prior to admission
Hypertension
Anxiety disorder
Plan/recommendations
At this time, patient appears to be slowly improving
Remains on dobutamine as of this morning
Hemoglobin 7.7
Received additional unit of blood this morning, able to ambulate with physical therapy thereafter
Echocardiogram unremarkable
Moving forward
Continue with management per CT surgery
Chest x-ray stable, chest tube removed
Warfarin started
Midodrine also started
Amiodarone, metoprolol held
Incentive spirometry, airway clearance, out of bed to chair as able
Hemoglobin appears to be stable
Platelets decreased to 71, seems to be stabilizing
Head of bed elevated, aspiration precautions
Reviewed with critical care nursing
Once transferred to telemetry, we will sign off. Please call with questions
Subjective Dataa
Subjective Data
Date of Service:
Date of Service: February 03, 2024
Subjective:
Observed patient ambulating. She did have some mild dizziness. Earlier in the morning noted to have drop in blood pressure while standing up. Otherwise no other major issues or night
Objective Data
Data Reviewed
Vital Signs / I&O / Oxygen:
Vital Signs
Temp Pulse Resp BP Pulse Ox
98.3 F 75 16 122/70 96
02/03/24 10:02 02/03/24 10:02 02/03/24 10:02 02/03/24 10:02 02/03/24 10:02
Intake and Output
02/02/24 02/03/24 02/04/24
06:59 06:59 06:59
Intake Total 1288.7 / 1316.4 1427.6 / 1439.5 41.9 / 41.9
Output Total 600 / 640 1450 / 1480 260 / 260
Balance 688.7 / 676.4 -22.4 / -40.5 -218.1 / -218.1
SaO2 [CPAP/PSV] 99
SaO2 [SIMV] 100
SaO2 96
Nasal Cannula flow liters per 4
minute
Physical Exam
General: Comfortable
HEENT: Normocephalic and Anicteric
Cardiovascular: S1-S2, Regular Rhythm, Murmur (n) and Rub (n)
Respiratory: Wheeze (n), Crackles (n), Rhonchi (n), Chest Tube and Other (Mild splinting)
GI: Soft, Non Distended and Non Tender
Neurology: Awake, Alert and No Motor Deficits (Moves all extremities, generally weak)
Skin: Cyanosis (n), Jaundice (n) and Rash (n)
Labs/Micro/Reports
Lab Data
02/03/24 02:59
02/03/24 02:59
Laboratory Results
02/03/24
02:59
PT 16.1 H
INR 1.28
[2024-02-03 10:52] LABS: % Basophils 0.2 % (0-2); % Eosinophils 0.6 % (0-6); % Immature Granulocytes 0.3 % (0-0.5); % Lymphocytes 14.5 % (20.5-51.1); % Monocytes 9.2 % (1.7-9.3); % Neutrophils 75.2 % (42.2-75.2); Absolute Eosinophils 0.1 10^3/uL (0-0.7); Absolute Lymphocytes 1.8 10^3/uL (1.2-3.4); Absolute Monocytes 1.2 10^3/uL (0.1-0.6); Absolute Neutrophils 9.6 10^3/uL (1.4-6.5); Nucleated Red Blood Cells % 0.2 %
--- NOTE | 2024-02-03 10:59 | CM ---
dc plans remain home when medically stable and f/u with CT Transitional care nurse after dc
[2024-02-03 11:12] LABS: D-Dimer 0.71 ug/mlFEU (0.00-0.50)
[2024-02-03 11:58] LABS: Cortisol, Random 22.1 ug/dl
--- NOTE | 2024-02-03 12:40 | PTCARENOTE ---
Pt received 1 unit PRBC, no transfusion reactions observed. BP currently 113/65 MAP 81. SR HR 73. Pulse oximetry 93% on 4L nasal cannula. Pt currently resting comfortably.
[2024-02-03] MEDS: ROXICODONE 5 MG PO (12:57)
[2024-02-03] MEDS: FERRLECIT 110 MG IV (13:00)
--- NOTE | 2024-02-03 14:32 | PN.CDI ---
Addendum entered and electronically signed by Iron Benavidez PA-C 02/07/24 08:51:
Pt with acute pulmonary insufficiency post operatively
Original Note:
CDI
- -
CDI:
Physician Documentation Request
Admit Date: 01/31/24 05:07
Dear Doctor Reynolds/CVPA,
Please review the following and provide your response in the progress notes.
Clinical Indicators:
Pt admitted with Mitral Valve insufficiency for surgery MVR /surgery 01/31/24
Extubated on 01/31/24 @ 2045 to 6 LPM sats 100%
Patient care note 01/31 @ 0832, ' Pulse oximetry 95% on 2L nasal cannula. ...'
Pt care note 01/31 @ 2000,' . POX 91-93% on 5 L NC. IS encouraged....'
Pt care note 02/02 @ 0830,' Pulse oximetry 92% on 6L nasal cannula....'
Pt care note 02/02 @ 1240,' Pulse oximetry 93% on 4L nasal cannula...'
01/31/24
21:00 01/31/24
21:30 02/01/24
00:00
Resp Rate 24
Nasal Cannula flow liters per minute 6 4
02/01/24
08:00 02/01/24
10:30 02/01/24
12:30
Pulse 95 91
Resp Rate 24
Nasal Cannula flow liters per minute 2
02/01/24
13:50 02/01/24
17:15 02/01/24
18:00
Pulse 93
Resp Rate 26
SaO2 88
Nasal Cannula flow liters per minute 4
02/01/24
18:45 02/01/24
19:00 02/01/24
21:02
SaO2 89
Nasal Cannula flow liters per minute 5 5
02/02/24
01:00 02/02/24
11:01 02/02/24
14:00
Pulse
Resp Rate 38 26
Nasal Cannula flow liters per minute 4
02/02/24
15:00 02/02/24
15:00 02/02/24
20:30
Resp Rate 28 31
Nasal Cannula flow liters per minute 3
02/03/24
06:15 02/03/24
08:19 02/03/24
10:15
Pulse 94
Resp Rate 32
Nasal Cannula flow liters per minute 6
Clarify which of the following accurately represents the patient's respiratory status following surgery:
Acute pulmonary insufficiency (following surgery)
Hypoxia only
Other
Additional information for Pulmonary Insufficiency:
Consider when patients require alf oxygen therapy postoperatively
Weaned off oxygen initially then requiring supplemental oxygen
No other definitive diagnosis to support the need for oxygen (COPD exac, CHF etc.)
Unable to wean from vent
When criteria for respiratory failure not present
May extend stay or require additional resources; may need home O2
Additional information for Respiratory Failure:
Recognized criteria for Respiratory Failure (Source: [facility] Hospitalist Mar 2013)
ABGs: (1 or more) Symptoms Indicate:
1. p)2 <60 or RA SPO2 <91% on RA 1. Tachypnea, SOB, dyspnea 1. Type as:
2. pCO2 50 and pH <7.35 2. Use of accessory muscles a. Hypoxic
3. pO2 decrease of pCO2 increase by 3. Pallor or cyanosis b. Hypercapnic
10 mmHg from baseline if known 4. Anxiety or restlessness 2. If due to procedure or due to another cause
5. Unable to speak in full sentences
Supplemental O2 of > 40% Intubation is not required
Use of terms such as suspected, likely, concern for, or probable (associated with a specific diagnosis that is being evaluated, monitored, or treated as if it exists) are acceptable and can be coded in the inpatient setting, when documented at the
time of discharge.
Thank you,
Guillermina Amezquita RN
CDI Specialist
[facility]
Please use your independent medical judgment in providing your response.
[2024-02-03] MEDS: TYLENOL 1000 MG PO ×2 (14:35→22:09)
[2024-02-03 15:09] LABS: Hemoglobin 9.9 g/dL (12.0-16.0); Mean Corp Hgb Conc. 34.1 g/dL (33.0-37.0); Mean Corpuscular Hgb 32.1 pg (27.0-31.0); Mean Corpuscular Volume 94.2 fL (81.0-99.0); Mean Platelet Volume 10.4 fL (7.4-10.4); Platelet Count 99 10^3/uL (130-400); Red Blood Cell Count 3.08 10^6/uL (4.20-5.40); Red Cell Dist. Width 13.2 % (11.5-14.5); White Blood Cell Count 14.6 10^3/uL (4.8-10.8)
[2024-02-03 15:16] LABS: Blood Urea Nitrogen 31 mg/dl (7-17); Calcium 9.4 mg/dl (8.4-10.2); Carbon Dioxide 26 mmol/L (22-30); Chloride 98 mmol/L (98-107); Estimated Creatinine Clearance 43 ml/min; Glucose 88 mg/dl (70-99); Magnesium 1.8 mg/dl (1.6-2.3); Potassium 3.7 mmol/L (3.5-5.1); Sodium 134 mmol/L (135-145); eGFR > 60.00
--- NOTE | 2024-02-03 16:30 | PTCARENOTE ---
Pt worked with cardiac rehab, tolerated well. Ambulated in hallway and now OOB in chair. Pt remains SR with HR 70's. BP 97/47 MAP 62. Pulse oximetry 92% on 4L.
[2024-02-03] MEDS: COUMADIN 2.5 MG PO (17:27)
[2024-02-03] MEDS: KCL 40 MEQ PO (19:10)
[2024-02-03] MEDS: LOPRESSOR 12.5 MG PO (20:31)
--- NOTE | 2024-02-03 21:15 | PTCARENOTE ---
Assumed care of pt from dayshift RN. Walking rounds completed. Pt AAOx3. SANTIAGO. No headache/dizziness. Pt SR on the tele monitor. HR 70-80s. BP 117/66. Trace edema throughout. Bilateral LE edema +1. Palpable pulses throughout. Pt on 6 L NC. POX
90-92%. Lung sounds diminished throughout. Deep breathing and IS encouraged. Abdomen soft/nontender. +BS. Denies nausea. Pt voided in commode. Urine yellow. Sternal incision approximated and KIERRA. CT incision sites open-not approximated and [employer].
Right IJ cordis intact w/ KVO infusing. PIVx1 CDI and flushes. Pt 2x assist out of bed/chair to the commode. Pt states pain is controlled at this time. See worklist for full nursing assessment and interventions. Call ram within reach.
[2024-02-04] VITALS (16 sets, daily range): BP systolic 88–147; BP diastolic 65–80; PULSE 81; BMI 28.3
--- NOTE | 2024-02-04 00:10 | PTCARENOTE ---
No acute changes in assessment. Pt sinus nick to sinus rhythm on the tele monitor. HR 50-60s. BP stable. Pt on 6 L NC. POX 92%. All surgical sites stable. No c/o pain at this time. Pt resting in bed at this time. Call ram within reach.
--- NOTE | 2024-02-04 04:34 | PTCARENOTE ---
Previous assessment unchanged. Pt sinus nick to SR on the tele monitor. HR 50-60s. BP stable. Pt on 6 L NC. POX 93-96%. All surgical sites stable. Pt assist OOB to the commode. Pt voiding w/o issue. +BM. Labs drawn and sent. No c/o pain. Pt
repositioned into bed. Call ram within reach.
[2024-02-04 04:51] LABS: Hematocrit 29.9 % (37.0-47.0); Hemoglobin 10.2 g/dL (12.0-16.0); Mean Corp Hgb Conc. 34.1 g/dL (33.0-37.0); Mean Corpuscular Hgb 32.1 pg (27.0-31.0); Mean Platelet Volume 10.3 fL (7.4-10.4); Platelet Count 99 10^3/uL (130-400); Red Blood Cell Count 3.18 10^6/uL (4.20-5.40); Red Cell Dist. Width 13.2 % (11.5-14.5); White Blood Cell Count 11.5 10^3/uL (4.8-10.8)
[2024-02-04 04:54] LABS: INR 1.38; PT 16.8 Sec (11.4-14.6)
[2024-02-04 05:07] LABS: Blood Urea Nitrogen 27 mg/dl (7-17); Calcium 9.5 mg/dl (8.4-10.2); Carbon Dioxide 27 mmol/L (22-30); Chloride 100 mmol/L (98-107); Estimated Creatinine Clearance 43 ml/min; Glucose 86 mg/dl (70-99); Magnesium 1.8 mg/dl (1.6-2.3); Potassium 3.7 mmol/L (3.5-5.1); Sodium 137 mmol/L (135-145); eGFR > 60.00
--- NOTE | 2024-02-04 05:52 | W.PN.CT ---
Today's Communication / Plan
-
-pod #4
-no issues overnight, no further dizziness
-s/p 1 pRBC on 02/02 for hypotension with near-syncope, then diuresed well with bid iv Bumex (UO 1150/2355 in 12/24 hrs)
-BB restarted
-s/p Echo 02/02
-Coumadin started 02/01 (got 1mg, 2.5 mg). INR today 1.38
-encourage IS, OOB, ambulate
Assessment / Plan
-
Assessment:
-S/p standard sternotomy with aortic and bicaval cannulation/Chordal sparing mitral valve replacement [27 mm bioprosthesis]/ Patch repair of the annulus from P1-P3 using bovine pericardium/Aggressive debridement using the CUSA device in order to
remove all of the MAC/Left atrial appendage exclusion with a 35 mm clip, by Dr. Reynolds, 01/31/24, pod#4
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
-Degenerative mitral valve disease with elements of stenosis and retracted cords, resulting in severe insufficiency
-LVEF 60-65% per intraop CHA
-Mild TR
-Chronic diastolic CHF
-HTN
-Chronic back S/p Epidural steroid injections of L2-L3 (01/29/21); L4-L5 ()
-Chronic opioid dependence
-Anxiety disorder
-Anemia
-S/P R ROSELINE (06/2020)
-S/P B/L shoulder surgery (2011)
-S/P x 4
-Acute postop blood loss anemia on chronic anemia (transfused 3u PRBC total)
-Acute postop atelectasis
-Acute postop Cardiogenic shock (CI 0.85-1.52)
-Acute postop vasoplegia/ distributive shock
-Acute postop hypovolemia with subsequent hypervolemia
Echo 02/03/24:
Normal left ventricular systolic function.
Left ventricular ejection fraction is 60-65%
Bioprosthetic mitral valve replacement with a mean gradient of 2 mmHg. No mitral regurgitation
Moderate tricuspid regurgitation.
Pleural effusion is seen
Compared to the previous report 12/10/2023 bioprosthetic mitral valve replacement is now present. Pleural effusion also reported.
Discussed patient care with: Nursing and Care Team
Subjective
Procedure
/p standard sternotomy with aortic and bicaval cannulation/Chordal sparing mitral valve replacement [27 mm bioprosthesis]/ Patch repair of the annulus from P1-P3 using bovine pericardium/Aggressive debridement using the CUSA device in order to
remove all of the MAC/Left atrial appendage exclusion with a 35 mm clip, by Dr. Reynolds, 01/31/24,
-
Date of Service: February 04, 2024
Objective Data
-
PT 16.1 Sec (11.4-14.6) H 02/03/24 02:59
INR 1.28 02/03/24 02:59
APTT 42.8 Sec (23.4-35.0) H 01/31/24 11:55
Vital Signs
Vital Signs
Temp Pulse Resp BP Pulse Ox
98.3 F 69 18 123/65 92
02/04/24 00:04 02/04/24 00:04 02/04/24 00:04 02/04/24 00:04 02/04/24 00:04
CT Intake/Output/Weight
02/03/24 02/03/24 02/04/24
06:59 18:59 06:59
Intake Total 482.8 / 1439.5 621.9 / 681.9 60 / 681.9
Output Total 300 / 1480 1205 / 5 / 2054
Balance 182.8 / -40.5 -583.1 / -1373.1 -790 / -1373.1
SaO2: 92
Physical Exam
-
General: Awake and AOx3
Cardiovascular: Regular rate & rhythm, No Murmurs and No Rub
Respiratory: Decreased Breath Sounds
Sternum: Stable
Incision: Clean, Dry and Intact
Abdomen: soft, nontender, non distended, + bowel sounds
Extremities: Other (trace edema b/l)
Data Reviewed
-
Lab Results: Results Reviewed
Medications: Active Meds Reviewed
Chest X-Ray: Report Reviewed and Image Reviewed
ECG: Report Reviewed and Image Reviewed
[2024-02-04] MEDS: TYLENOL 1000 MG PO ×3 (06:07→22:00)
[2024-02-04] MEDS: KCL 40 MEQ PO ×2 (06:08→08:28)
--- NOTE | 2024-02-04 08:00 | PTCARENOTE ---
Assumed care of patient from security shift supervisor RN. AAO x 3. C/o generalized pain and weakness. Pain management discussed. SR on monitor. 4 L NC pulse ox 93%. Using IS independently to 1000. No cough or sputum noted. Lungs decreased bilaterally
t/o. Surgical sites intact. Ecchymosis noted at sternal incision. Abdomen soft and non tender. Appetite good. plus 1 lower extremity edema appreciated. Pulses palpable. Plan for day discussed.
[2024-02-04] MEDS: LIDOCAINE 4% PATCH 1 PATCH TOPICAL (08:26)
[2024-02-04] MEDS: FLEXERIL 5 MG PO ×2 (08:26→20:18)
[2024-02-04] MEDS: LOPRESSOR 12.5 MG PO ×2 (08:27→20:17)
[2024-02-04] MEDS: LOW STRENGTH ASPIRIN 81 MG PO (08:27)
[2024-02-04] MEDS: NEURONTIN 100 MG PO ×3 (08:27→22:00)
[2024-02-04] MEDS: MAGNESIUM OXIDE 500 MG PO ×2 (08:28→20:18)
[2024-02-04] MEDS: LEXAPRO 20 MG PO (08:28)
[2024-02-04] MEDS: VITAMIN C 500 MG PO (08:28)
[2024-02-04] MEDS: FEOSOL 325 MG PO (08:28)
[2024-02-04] MEDS: BACTROBAN 2% OINTMENT 1 APPLIC NASAL (08:29)
[2024-02-04] MEDS: BUMEX 2 MG IV ×2 (08:29→14:28)
[2024-02-04] MEDS: PROTONIX 40 MG PO (08:29)
[2024-02-04] MEDS: SENOKOT-S PO ×2 (08:47→20:18)
--- NOTE | 2024-02-04 12:58 | PTCARENOTE ---
Attempted to wean to room air, pulse ox down to 86%. placed back on 2 L with pilse ox of 91%. IS encouraged. VSS , Assessment otherwise unchanged from prior
[2024-02-04] MEDS: NSS IV (14:26)
[2024-02-04] MEDS: COUMADIN 4 MG PO (17:19)
--- NOTE | 2024-02-04 21:00 | PTCARENOTE ---
Assumed care of pt from dayshift RN. Walking rounds completed. Pt AAOx3. SR on the tele monitor. HR 60-70s. BP 100-120s/60-70s. Bilateral LE edema +2. Trace edema throughout. Pt on 2 L NC. POX 92-94%. Lung sounds diminished throughout. IS and deep
breathing encouraged. Abdomen soft/nontender. Pt voiding w/o issue. Assist x1 to stand. Sternal incision approximated w/ surgical adhesive, ecchymotic, and KIERRA. CT incision sitesx3 open/not approximated and KIERRA. PIVx1 CDI. See worklist for full
nursing assessment and interventions. Call ram within reach.
[2024-02-04] MEDS: ROXICODONE 5 MG PO (22:00)
[2024-02-05] VITALS (11 sets, daily range): BP systolic 113–170; BP diastolic 55–82; PULSE 70; O2SAT 91; BMI 27.9
--- NOTE | 2024-02-05 00:27 | PTCARENOTE ---
Previous assessment unchanged. Pt SR on the tele monitor. HR 60s. BP stable. Pt maintained on 2 L NC. POX 92-94%. All surgical sites stable. Pt resting in bed at this time. Call ram within reach.
--- NOTE | 2024-02-05 05:06 | PTCARENOTE ---
Previous assessment unchanged. Pt SR on the tele monitor. HR 60s. BP stable. Pt maintained on 2 L NC. POX 92%. All surgical sites stable. Labs drawn and sent. Pt repositioned in the bed. No c/o pain. Call ram within reach.
[2024-02-05 05:22] LABS: INR 1.82; PT 20.9 Sec (11.4-14.6)
--- NOTE | 2024-02-05 05:50 | W.PN.CT ---
Today's Communication / Plan
-
-pod #5
-no issues overnight
-BB restarted, tolerating
-Coumadin started 02/01 (got 1mg, 2.5 mg). INR today 1.82
-encourage IS, OOB, ambulate
Assessment / Plan
-
Assessment:
-S/p standard sternotomy with aortic and bicaval cannulation/Chordal sparing mitral valve replacement [27 mm bioprosthesis]/ Patch repair of the annulus from P1-P3 using bovine pericardium/Aggressive debridement using the CUSA device in order to
remove all of the MAC/Left atrial appendage exclusion with a 35 mm clip, by Dr. Reynolds, 01/31/24, pod#5
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
-Degenerative mitral valve disease with elements of stenosis and retracted cords, resulting in severe insufficiency
-LVEF 60-65% per intraop CHA
-Mild TR
-Chronic diastolic CHF
-HTN
-Chronic back S/p Epidural steroid injections of L2-L3 (01/29/21); L4-L5 ()
-Chronic opioid dependence
-Anxiety disorder
-Anemia
-S/P R ROSELINE (06/2020)
-S/P B/L shoulder surgery (2011)
-S/P x 4
-Acute postop blood loss anemia on chronic anemia (transfused 3u PRBC total)
-Acute postop atelectasis
-Acute postop Cardiogenic shock (CI 0.85-1.52)
-Acute postop vasoplegia/ distributive shock
-Acute postop hypovolemia with subsequent hypervolemia
Echo 02/03/24:
Normal left ventricular systolic function.
Left ventricular ejection fraction is 60-65%
Bioprosthetic mitral valve replacement with a mean gradient of 2 mmHg. No mitral regurgitation
Moderate tricuspid regurgitation.
Pleural effusion is seen
Compared to the previous report 12/10/2023 bioprosthetic mitral valve replacement is now present. Pleural effusion also reported.
Subjective
Procedure
/p standard sternotomy with aortic and bicaval cannulation/Chordal sparing mitral valve replacement [27 mm bioprosthesis]/ Patch repair of the annulus from P1-P3 using bovine pericardium/Aggressive debridement using the CUSA device in order to
remove all of the MAC/Left atrial appendage exclusion with a 35 mm clip, by Dr. Reynolds, 01/31/24,
-
Date of Service: February 05, 2024
Objective Data
-
Lab Results
02/04/24 04:29
02/04/24 04:29
PT 20.9 Sec (11.4-14.6) H 02/05/24 04:47
INR 1.82 02/05/24 04:47
APTT 42.8 Sec (23.4-35.0) H 01/31/24 11:55
Vital Signs
Vital Signs
Temp Pulse Resp BP Pulse Ox
98.3 F 69 14 130/81 94
02/05/24 04:34 02/05/24 04:34 02/05/24 04:34 02/05/24 04:34 02/05/24 04:34
CT Intake/Output/Weight
02/04/24 02/04/24 02/05/24
06:59 18:59 06:59
Intake Total 120 / 741.9 1090 / 1090
Output Total 1150 / 2355 1150 / 1650 500 / 1650
Balance -1030 / -1613.1 -60 / -560 -500 / -560
SaO2: 94
Physical Exam
-
General: Awake, Oriented and AOx3
Cardiovascular: Regular rate & rhythm
Respiratory: Clear
Sternum: Stable
Incision: Clean and Dry
Data Reviewed
-
Lab Results: Results Reviewed
Medications: Active Meds Reviewed
Chest X-Ray: Report Reviewed
ECG: Report Reviewed
[2024-02-05] MEDS: TYLENOL 1000 MG PO ×3 (06:34→22:27)
--- NOTE | 2024-02-05 08:00 | PTCARENOTE ---
Assumed care of patient from rn clinical documentation specialist RN. AAO x3 SR on monitor. 1 L Nc 96%, trialed on room air but was however 86%. IS encouraged. Placed back on 1L NC. Abdomen soft and non tender. Passing flatus, appetite good. Voiding w/o issue. Trace
lower extremity edema appreciated. Pulses palpable. Surgical sites c,d,i. Plan for day discussed.
[2024-02-05] MEDS: LIDOCAINE 4% PATCH 1 PATCH TOPICAL (08:10)
[2024-02-05] MEDS: MAGNESIUM OXIDE 500 MG PO ×2 (08:11→20:19)
[2024-02-05] MEDS: PROTONIX 40 MG PO (08:11)
[2024-02-05] MEDS: FEOSOL 325 MG PO (08:11)
[2024-02-05] MEDS: VITAMIN C 500 MG PO (08:11)
[2024-02-05] MEDS: NEURONTIN 100 MG PO ×3 (08:11→22:28)
[2024-02-05] MEDS: LOW STRENGTH ASPIRIN 81 MG PO (08:11)
[2024-02-05] MEDS: FLEXERIL 5 MG PO ×2 (08:11→22:28)
[2024-02-05] MEDS: LOPRESSOR 12.5 MG PO (08:11)
[2024-02-05] MEDS: LEXAPRO 20 MG PO (08:11)
[2024-02-05] MEDS: SENOKOT-S PO (08:12)
[2024-02-05] MEDS: NSS IV (08:12)
[2024-02-05 08:26] LABS: Blood Urea Nitrogen 27 mg/dl (7-17); Calcium 9.5 mg/dl (8.4-10.2); Carbon Dioxide 31 mmol/L (22-30); Chloride 96 mmol/L (98-107); Estimated Creatinine Clearance 43 ml/min; Glucose 87 mg/dl (70-99); Potassium 4.5 mmol/L (3.5-5.1); Sodium 137 mmol/L (135-145); eGFR > 60.00
[2024-02-05] MEDS: LASIX 40 MG IV (09:40)
[2024-02-05] MEDS: DIAMOX 250 MG PO (09:40)
--- NOTE | 2024-02-05 12:51 | PTCARENOTE ---
VSS. Assessment unchanged from prior. Denies complaint.
[2024-02-05] MEDS: COUMADIN 2.5 MG PO (16:42)
[2024-02-05] MEDS: SENOKOT-S 1 TABLET PO (20:19)
[2024-02-05] MEDS: LOPRESSOR 25 MG PO (20:19)
[2024-02-05] MEDS: ROXICODONE 5 MG PO (22:32)
[2024-02-06] VITALS (7 sets, daily range): BP systolic 95–135; BP diastolic 55–72; BMI 27.7
--- NOTE | 2024-02-06 01:18 | PTCARENOTE ---
Pt. received as transfer from CVICU at change of shift. VSS on 1L O2 via NC. NSR on tele with HR 60s-70s. IS encouraged. Sternal surgical site and CT sites X3 all C/D/I and open to air. Some ecchymosis noted surrounding sternal incision site.
Pt. with complaints of pain at sternal surgical site, Tylenol and Emily administered per orders, see MAR. Ambulating with rolling walker and stand-by assist to bathroom. Plan of care discussed with pt. and daughter, who verbalize understanding.
Can make needs known. Call ram within reach.
--- NOTE | 2024-02-06 05:26 | W.PN.CT ---
Today's Communication / Plan
-
-pod #6
-transferred to IVU
-BB restarted, tolerating, still holding amio
-diuresis with lasix/Diamox yesterday, >1L UOP in 24 hrs
-Coumadin started 02/01 (1mg, 2.5 mg, 2.5 mg yesterday). INR today still pending
-Continue ASA, metoprolol 25 mg
-Continue escitalopram, vit c, mag ox, Protonix, gabapentin/APAP/lidocaine patch, iron
-encourage IS, OOB, ambulate
Assessment / Plan
-
Assessment:
-S/p standard sternotomy with aortic and bicaval cannulation/Chordal sparing mitral valve replacement [27 mm bioprosthesis]/ Patch repair of the annulus from P1-P3 using bovine pericardium/Aggressive debridement using the CUSA device in order to
remove all of the MAC/Left atrial appendage exclusion with a 35 mm clip, by Dr. Reynolds, 01/31/24, pod#6
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
-Degenerative mitral valve disease with elements of stenosis and retracted cords, resulting in severe insufficiency
-LVEF 60-65% per intraop CHA
-Mild TR
-Chronic diastolic CHF
-HTN
-Chronic back S/p Epidural steroid injections of L2-L3 (01/29/21); L4-L5 ()
-Chronic opioid dependence
-Anxiety disorder
-Anemia
-S/P R ROSELINE (06/2020)
-S/P B/L shoulder surgery (2011)
-S/P x 4
-Acute postop blood loss anemia on chronic anemia (transfused 3u PRBC total)
-Acute postop atelectasis
-Acute postop Cardiogenic shock (CI 0.85-1.52)
-Acute postop vasoplegia/ distributive shock
-Acute postop hypovolemia with subsequent hypervolemia
Echo 02/03/24:
Normal left ventricular systolic function.
Left ventricular ejection fraction is 60-65%
Bioprosthetic mitral valve replacement with a mean gradient of 2 mmHg. No mitral regurgitation
Moderate tricuspid regurgitation.
Pleural effusion is seen
Compared to the previous report 12/10/2023 bioprosthetic mitral valve replacement is now present. Pleural effusion also reported.
Subjective
Procedure
/p standard sternotomy with aortic and bicaval cannulation/Chordal sparing mitral valve replacement [27 mm bioprosthesis]/ Patch repair of the annulus from P1-P3 using bovine pericardium/Aggressive debridement using the CUSA device in order to
remove all of the MAC/Left atrial appendage exclusion with a 35 mm clip, by Dr. Reynolds, 01/31/24,
-
Date of Service: February 06, 2024
Objective Data
-
PT 20.9 Sec (11.4-14.6) H 02/05/24 04:47
INR 1.82 02/05/24 04:47
APTT 42.8 Sec (23.4-35.0) H 01/31/24 11:55
Vital Signs
Vital Signs
Temp Pulse Resp BP Pulse Ox
98.4 F 69 20 134/76 95
02/05/24 22:33 02/05/24 23:18 02/05/24 22:33 02/05/24 23:18 02/05/24 22:33
CT Intake/Output/Weight
02/05/24 02/05/24 02/06/24
06:59 18:59 06:59
Intake Total 720 / 720
Output Total 700 / 1850 800 / 1050 250 / 1050
Balance -700 / -760 -80 / -330 -250 / -330
SaO2: 95
Physical Exam
-
General: Awake, Oriented and AOx3
Cardiovascular: Regular rate & rhythm
Respiratory: Clear
Sternum: Stable
Incision: Clean, Dry and Intact
Data Reviewed
-
Lab Results: Results Reviewed
Medications: Active Meds Reviewed
Chest X-Ray: Report Reviewed
ECG: Report Reviewed
[2024-02-06] MEDS: TYLENOL 1000 MG PO (05:55)
[2024-02-06 06:10] LABS: Hematocrit 33.2 % (37.0-47.0); Hemoglobin 10.9 g/dL (12.0-16.0); Mean Corp Hgb Conc. 32.8 g/dL (33.0-37.0); Mean Corpuscular Hgb 30.4 pg (27.0-31.0); Mean Corpuscular Volume 92.7 fL (81.0-99.0); Mean Platelet Volume 9.7 fL (7.4-10.4); Platelet Count 172 10^3/uL (130-400); Red Blood Cell Count 3.58 10^6/uL (4.20-5.40); Red Cell Dist. Width 13.1 % (11.5-14.5); White Blood Cell Count 9.1 10^3/uL (4.8-10.8)
[2024-02-06 06:12] LABS: INR 2.17; PT 24.1 Sec (11.4-14.6)
[2024-02-06 06:49] LABS: Blood Urea Nitrogen 25 mg/dl (7-17); Calcium 9.5 mg/dl (8.4-10.2); Carbon Dioxide 28 mmol/L (22-30); Chloride 99 mmol/L (98-107); Estimated Creatinine Clearance 43 ml/min; Glucose 84 mg/dl (70-99); Potassium 3.9 mmol/L (3.5-5.1); Sodium 135 mmol/L (135-145); eGFR > 60.00
--- NOTE | 2024-02-06 07:00 | PTCARENOTE ---
pt received at change of shift. Pt AAOX3. denies pain. SR on telemetry heart rate in 60-70s. trace lower extremity edema. weakly palpable pulses. pt room air, sat 90-92%. lung sounds diminished in bases. IS encouraged. active bowel sounds. voiding
in bathroom. surgical sites KIERRA intact. see worklist for full nursing assessment and interventions.
[2024-02-06] MEDS: PROTONIX 40 MG PO (07:44)
[2024-02-06] MEDS: MAGNESIUM OXIDE 500 MG PO (07:44)
[2024-02-06] MEDS: KCL 40 MEQ PO (07:44)
[2024-02-06] MEDS: LEXAPRO 20 MG PO (07:45)
[2024-02-06] MEDS: FEOSOL 325 MG PO (07:45)
[2024-02-06] MEDS: NEURONTIN 100 MG PO (07:45)
[2024-02-06] MEDS: LOW STRENGTH ASPIRIN 81 MG PO (07:45)
[2024-02-06] MEDS: LIDOCAINE 4% PATCH 1 PATCH TOPICAL (07:45)
[2024-02-06] MEDS: VITAMIN C 500 MG PO (07:45)
[2024-02-06] MEDS: DIAMOX 125 MG PO (07:46)
[2024-02-06] MEDS: LOPRESSOR 25 MG PO (07:46)
[2024-02-06] MEDS: SENOKOT-S 1 TABLET PO (07:46)
[2024-02-06] MEDS: LASIX 40 MG IV (07:47)
--- NOTE | 2024-02-06 08:28 | W.PN.CD ---
Addendum entered and electronically signed by Jarod Block MD 02/06/24 09:57:
83 yo female with severe MR admitted for bio-MVR. No CP, SOB. Exam with RRR, no murmurs, no edema. Cr 0.9. Tele: SR 60s.
Discussed with CT surgery. Will be on coumadin for 3 months post op.
Original Note:
Today's Communication / Plan
-
Patient enrolled outpatient warfarin clinic
Impression / Plan
-
Impression/Plan: 83F with HTN and severe, degenerative mitral valve regurgitation with dense MAC admitted for elective MVR.
#Severe, degenerative MVR
-Chronic.
-S/P extensive MAC debridement requiring bovine patch annuloplasty (SN [id number]), #27 Rocha Mitris Resilia chord sparing mitral valve replacement (SN [id number]) and #35 Atriclip LAAE ( [id number]).
-LVEF unchanged pre/post op
-INR 2.17 today, warfarin for 3 months post operatively
#Chronic diastolic heart failure
-Admitting weight 62.6kg, today's weight 66.5kg
-Heart failure education provided
#Acute blood loss anemia, secondary to surgery.
#Acute thrombocytopenia.
#Post operative cardiogenic shock
Subjective/Interval History:
Denies CP, SOB, and dizziness.
DATA:
Cardiac Catheterization, 12/26/2023:
CONCLUSIONS:
1. Right dominant circulation with no coronary artery disease.
2. Top normal to mildly elevated filling pressures (LVEDP = 16 mmHg, PCWP = 16 mmHg at 60.8 kg).
3. Depressed cardiac index (1.7 L/min/m�).
4. Severely elevated SVR (3247 dynes*seconds*cm^-5).
5. Dense mitral annular calcification.
6. Severe degenerative mitral regurgitation on echocardiography.
CHA, 02/03/2024:
Normal left ventricular systolic function.
Left ventricular ejection fraction is 60-65%
Bioprosthetic mitral valve replacement with a mean gradient of 2 mmHg. No
mitral regurgitation
Moderate tricuspid regurgitation.
Pleural effusion is seen
Compared to the previous report 12/10/2023 bioprosthetic mitral valve
replacement is now present. Pleural effusion also reported.
Physical Exam
Vital Signs/Labs
Vital Signs
Temp Pulse Resp BP Pulse Ox
98 F 69 20 135/72 93
02/06/24 07:12 02/06/24 07:46 02/06/24 07:12 02/06/24 07:46 02/06/24 07:12
02/05/24 02/06/24 02/07/24
06:59 06:59 06:59
Actual Weight 66.9 kg 66.5 kg
02/06/24 05:36
02/06/24 05:36
PT 24.1 Sec (11.4-14.6) H 02/06/24 05:36
INR 2.17 02/06/24 05:36
APTT 42.8 Sec (23.4-35.0) H 01/31/24 11:55
Magnesium 1.8 mg/dl (1.6-2.3) 02/04/24 04:29
Physical Exam
Constitutional: No acute distress and Comfortable
EENT: Anicteric and Moist mucous membranes
Cardiovascular: Rhythm & rate is regular, Pedal edema present and S1S2 is normal
Respiratory: Respiratory effort normal and Lungs clear to auscul.
GI: Soft, Distention absent, Flat, Non tender and Normal bowel sounds
Neuro/Psych: AO x 3
Other: Skin (warm and dry)
Data Reviewed
-
Date of Service: February 06, 2024
Labs: Labs Reviewed by me
[2024-02-06] MEDS: COUMADIN 2.5 MG PO (09:36)
--- NOTE | 2024-02-06 09:38 | W.DCSUMMARY ---
Discharge Summary
Discharge Data
Date of Admission: 01/31/24
Date of Discharge: 02/06/24
Total time spent discharging patient (in min): 40
-
Pending Results: No
Hospital Course
Primary care physician:
Dr. Balaji Gross MD
Outpatient scientific artist:
Dr. Gigi Al MD
Inpatient consultants:
[facility]
Procedures:
1. Chordal sparing mitral valve replacement number 27 bioprosthesis
2. Left atrial appendage exclusion with 35 millimeter clip
Primary Diagnosis:
1. Degenerative mitral valve disease with severe mitral annular calcification, symptomatic
Secondary Diagnoses:
1. Degenerative mitral valve disease with severe mitral annular calcification, symptomatic
2. Hypertension
3. Chronic back pain
4. Anxiety
5. Chronic opioid use/dependence
6. History of bilateral shoulder surgery
7. History of right total hip arthroplasty
8. History of x 4
HPI:
Patient is an 83-year-old female with severe mitral valve insufficiency secondary to prolapse of the leaflets as well as mitral annular calcification. She was referred as an outpatient and was severely symptomatic when she was seen in the office by
Dr. Reynolds. Symptoms were notable for the previous 6 months. Right heart catheterization was performed revealing a mildly depressed cardiac index of 1.7 and no significant coronary artery disease. Patient's case was discussed, and she was deemed an
appropriate candidate to undergo high risk surgical replacement of mitral valve as well as left atrial appendage exclusion.
Hospital course:
Patient presented to [facility] electively as an outpatient on 01/31/24 for the surgery described above. Patient tolerated the procedure well. She remained intubated and was transferred to the cardiovascular intensive care unit for
recovery. She was on norepinephrine at 2 for pressor support. She required atrial and ventricular pacing for underlying sinus bradycardia. Inotropic therapy with dobutamine was added. She was given 1 unit of packed red blood cells for hemoglobin
of 9. She was successfully extubated on postoperative day 0 at 2044.
The rest of the patient's postoperative recovery was uneventful. She received a second unit of packed red blood cells on postoperative day 1 and remained on norepinephrine. Midodrine was started and dobutamine was continued. She was also
intermittently on vasopressin. She was gently diuresed with Lasix 40 mg IV on postoperative day 2. Vasopressin was weaned off, and dobutamine was titrated to 1. Patient's [place] Federico catheter and arterial line were removed. Correia was kept in
place. She was started on 1 mg of Coumadin. Patient's pacing wires and chest tubes were removed without issues. On postoperative day 3 dobutamine was weaned off and she was aggressively diuresed with Bumex 2 mg IV twice daily. She received an
additional 1 unit of packed red blood cells and a transthoracic echocardiogram was performed. She was given 2.5 mg of Coumadin on day 3, and 4 mg of Coumadin on day 4. Postoperative day 5 she was diuresed with 250 mg of Diamox as well as 40 mg of
Lasix, and beta-blockade therapy was increased. She was given 2.5 mg of Coumadin for an INR of 1.82. Postoperative day #6, no new events occurred. INR was therapeutic at 2.17. She continued 2.5 mg of Coumadin. Patient was dosed with Coumadin
2.5 mg prior to leaving the hospital. Next Coumadin dose should be Tuesday02/07/2024. She was diuresed with Lasix 40 mg IV. Case was discussed with attending physician, and she was medically cleared to be discharged to home.
Patient should continue therapy with Coumadin for 3 months. After the 3 months is complete, she should discontinue Coumadin and resume taking aspirin only 81 mg daily. Patient should not take aspirin and Coumadin together.
Home medication changes:
Please pay attention to the following medication changes:
Take Lasix 40 mg daily for 7 days and stop unless instructed otherwise-post operative volume overload
Take Lopressor 25 mg BID-s/p mitral valve replacement
Take Pantoprazole 40 mg daily-GI prophylaxis with Coumadin
Take Potassium Chloride 20 meq daily with Lasix x7 days and stop unless instructed otherwise-electrolyte replacement
Take Warfarin 2.5 mg daily as directed-s/p mitral valve replacement.
Take Cyclobenzaprine 5 mg Q8H PRN-post op muscle spasm/pain
Stop Taking the following medications, discuss resuming at follow up with Cardiology, Mikaela Portillo MD
Hydrochlorothiazide 25 mg QPM
Lisinopril 40 mg daily
Hold the following medications, discuss resuming with PCP/Cardiology at follow up (may interact w/ Warfarin):
Biotin 1000 mcg daily
Cranberry 400 mg QPM
Take Coumadin 2.5 mg as directed by provider for goal INR 2.0-3.0 for a total of 3 months
Your next dose of Coumadin will be Tuesday02/07/24. You were given a dose Tuesday before you left the hospital
Once 3 months is complete discontinue taking Coumadin and being taking baby aspirin 81 mg daily
Do not take Aspirin and Coumadin together
Discharge Plan
-
Patient Disposition: Home (Routine Discharge)
Discharge Diagnosis/Procedures: Mitral valve replacement, left atrial appendage clip
Condition: Good
Diet: No restrictions
Activity: No strenuous activity
Driving Restrictions: Not until seen by your Dr
Bathing Restrictions: OK to Shower
Blood Work: Check INR on .....goal INR 2.0-3.0. Next dose of Coumadin will be 02/07/24
Other Services: Cardiac Rehab
Specialty Instructions: Weigh Daily- Call MD for wt gain/loss 3 lbs overnight/5 lbs in 1 week
Activity Restrictions/Additional Instructions:
ACTIVITY:
-No strenuous activity: no heavy lifting, pushing, pulling anything over 15 pounds for one month
-continue to use stairs as tolerated
DRIVING RESTRICTIONS:
-No driving for one month or until approved by your surgeon
WOUND CARE:
-Shower daily. Use soap & water.
-No lotions, creams or powders on incision area.
DIET:
-continue a low fat/low cholesterol diet.
-IF you are diabetic, continue carb controlled diet.
CARDIAC REHAB:
-Please make appointment to start in 5-6 weeks with your local hospital program. (See Cardiac Rehabilitation Discharge Booklet).
SPECIALTY INSTRUCTIONS:
-Weigh yourself daily. Call your physician for any weight gain/loss of 3 lbs overnight or 5 lbs in one week.
-REPORT any clicking noise or uneven appearance of your sternum to your surgeon immediately.
-If you smoke, you are instructed to quit. The [place] smoking hotline phone number is [phone]
Referrals:
CT Transitional Care Nurse [Outside] - in one to two days
(
The Cardiothoracic Transitional Care Nurse will call you to set up a visit in 1-2 days.)
[facility]iac [facility]hab [Outside] - 03/07/24 9:30 am
(Cardiac Rehab Orientation and First Exercise appointment is on Thursday March 07, 2024 at 9:30 AM.
The Cardiac Rehab gym is located on the first floor of the [facility]ovascular [facility].)
Mary Major CRNP [Specified Professional Personl] - 03/14/24 1:40 pm
Wang Reynolds MD [Active] - 03/01/24 1:45 pm
Balaji Gross DO [Family Provider] - in four to six weeks (Please make an appointment in four to six weeks. )
Additional Discharge Medication Instructions: Please pay attention to the following medication changes:
Take Lasix 40 mg daily for 7 days and stop unless instructed otherwise-post operative volume overload
Take Lopressor 25 mg BID-s/p mitral valve replacement
Take Pantoprazole 40 mg daily-GI prophylaxis with Coumadin
Take Potassium Chloride 20 meq daily with Lasix x7 days and stop unless instructed otherwise-electrolyte replacement
Take Warfarin 2.5 mg daily as directed-s/p mitral valve replacement.
Take Cyclobenzaprine 5 mg Q8H PRN-post op muscle spasm/pain
Stop Taking the following medications, discuss resuming at follow up with Cardiology, Mikaela Portillo MD
Hydrochlorothiazide 25 mg QPM
Lisinopril 40 mg daily
Hold the following medications, discuss resuming with PCP/Cardiology at follow up (may interact w/ Warfarin):
Biotin 1000 mcg daily
Cranberry 400 mg QPM
Take Coumadin 2.5 mg as directed by provider for goal INR 2.0-3.0 for a total of 3 months
Your next dose of Coumadin will be Tuesday02/07/24. You were given a dose Tuesday before you left the hospital
Once 3 months is complete discontinue taking Coumadin and being taking baby aspirin 81 mg daily
Do not take Aspirin and Coumadin together
Prescriptions:
New
pantoprazole 40 mg Tablet,Delayed Release (Dr/Ec)
40 mg PO DAILY Qty: 30 0RF
Rx Instructions:
GI prophylaxis w/ Coumadin. Obtain refills from PCP/Cardiology
metoprolol tartrate 25 mg Tablet
25 mg PO Q12 Qty: 30 1RF
furosemide [Lasix] 40 mg tablet
40 mg PO DAILY Qty: 7 7RF
Rx Instructions:
Take for 7 days until empty and then stop unless instructed otherwise
potassium chloride 20 mEq tablet extended release
20 meq PO DAILY Qty: 7 0RF
Rx Instructions:
Take daily with Lasix for 7 days and stop unless instructed otherwise
warfarin 2.5 mg tablet
2.5 mg PO DAILY Qty: 90 1RF
Rx Instructions:
Take 2.5 mg daily as directed by provider for 3 months
cyclobenzaprine 5 mg tablet
5 mg PO Q8H PRN (Reason: muscle spasms) Qty: 30 0RF
Rx Instructions:
As needed for moderate/severe pain/muscle spasms
Continued
acetaminophen 325 mg Tablet
650 mg PO Q4HPRN PRN (Reason: mild pain/[place]/temp> 100.4F) Qty: 1 0RF
lorazepam 1 mg tablet
1 mg PO BIDPRN PRN (Reason: Mental Health/Anxiety)
escitalopram oxalate 20 mg Tablet
20 mg PO DAILY
melatonin 1 mg Tablet,Chewable
1 mg PO HS PRN (Reason: sleep)
Held
cranberry 400 mg Capsule
400 mg PO QPM
Hold Instructions: Discuss resuming with Cardiology/PCP at follow up.
aspirin 81 mg Tablet,Delayed Release (Dr/Ec)
81 mg PO DAILY
Hold Instructions: Resume on 05/07/24. Hold Aspirin for 3 months while on Coumadin. Do not take Aspirin and Coumadin together. Once 3 months is up stop taking Coumadin and resume taking 81 mg of baby Aspirin only.
biotin 10,000 mcg Capsule
1,000 mcg PO DAILY
Hold Instructions: Discuss resuming with Cardiology/PCP at follow up
Discontinued
hydrochlorothiazide 25 mg Tablet
25 mg PO QPM
lisinopril 40 mg Tablet
40 mg PO DAILY
Care Plan Goals
Care Plan Goals:
Problem: Readiness for enhanced knowledge related to diagnosis and treatment plan
Goal: Understand your diagnosis and treatment plan needs, including medications if applicable.
Instructions: Know your diagnosis, underlying causes and treatment plan options, including medications if applicable. Consult with your health care team to learn about your diagnosis and treatment plan, including medications if applicable.
Discharge Date and Time
Print Language: HONDURAN
--- NOTE | 2024-02-06 09:54 | PN.CDI ---
Addendum entered and electronically signed by Iron Benavidez PA-C 02/07/24 08:48:
Pt with acute on chronic diastolic CHF
Original Note:
CDI
- -
CDI:
Physician Documentation Request
Admit Date: 01/31/24 05:07
Dear Doctor Reynolds/АННА,
Please review the following and provide your response in the progress notes.
Clinical Indicators:
Pt admitted with Mitral Valve insufficiency for surgery MVR /surgery 01/31/24
Pt with a HX of Chronic Diastolic CHF
Pt care note 02/03 @ 2100, ' ... Bilateral LE edema +2. Trace edema throughout. Pt on 2 L NC. POX 92-94%. Lung sounds diminished throughout....'
Patient care note 02/04 @ 0800, ' .. 1 L Nc 96%, trialed on room air but was however 86%. ...Placed back on 1L NC. ...Trace lower extremity edema appreciated. ....'
ECHO 02/02, ' Left ventricular ejection fraction is 60-65%...'
Cardiology note 02/05, ' Chronic diastolic heart failure Admitting weight 62.6kg, today's weight 66.5kg Heart failure education provided...'
Per MAR did get IV Lasix 40 mg 02/04 & 02/05 and IV Bumex 2 mg 2 doses on 02/02 and 2 doses on 02/03
Please provide a diagnosis for the above findings/treatment:
Acute on Chronic Diastolic CHF
Chronic Diastolic CHF only
Other ( please specify)
Use of terms such as suspected, likely, concern for, or probable (associated with a specific diagnosis that is being evaluated, monitored, or treated as if it exists) are acceptable and can be coded in the inpatient setting, when documented at the
time of discharge.
Thank you,
Guillermina Amezquita RN
CDI Specialist
[place] [employer]
Please use your independent medical judgment in providing your response.
[2024-02-06] MEDS: NSS IV (10:17)
== END 2024-02-06 14:28 | disposition home or self-care (01) | DRG 219 ==
LOC: IVU 05:07
PROVIDERS: Clinical Nurse Specialist Acute Care; Nurse Practitioner; Physician Assistant Medical; ADMITTING PHYSICIAN Thoracic Surgery (Cardiothoracic Vascular Surgery); CONSULT PHYSICIAN Internal Medicine Critical Care Medicine; FAMILY PHYSICIAN Internal Medicine
PROC: 5A1221Z Performance of Cardiac Output, Continuous (ICD-10-PCS; 2024-01-31)
PROC: 02UA08Z Supplement Heart with Zooplastic Tissue, Open Approach (ICD-10-PCS; 2024-01-31)
PROC: 02L70CK Occlusion of Left Atrial Appendage with Extraluminal Device, Open Approach (ICD-10-PCS; 2024-01-31)
PROC: 02RG08Z Replacement of Mitral Valve with Zooplastic Tissue, Open Approach (ICD-10-PCS; 2024-01-31)
PROC: 30233N1 Transfusion of Nonautologous Red Blood Cells into Peripheral Vein, Percutaneous Approach (ICD-10-PCS; 2024-01-31)
PROC: B24BZZ4 Ultrasonography of Heart with Aorta, Transesophageal (ICD-10-PCS; 2024-01-31)
DX: I34.0 Nonrheumatic mitral (valve) insufficiency (principal); I50.33 Acute on chronic diastolic (congestive) heart failure; J95.1 Acute pulmonary insufficiency following thoracic surgery; R57.0 Cardiogenic shock; D62 Acute posthemorrhagic anemia; F11.20 Opioid dependence, uncomplicated; I11.0 Hypertensive heart disease with heart failure; Z79.82 Long term (current) use of aspirin; Z79.01 Long term (current) use of anticoagulants
CPT/HCPCS: 93308; 36415; 71045; 80048; 80053; 81003; 81015; 82248; 82330; 82533; 82565; 82805; 82810; 82947; 82962; 83036; 83735; 84132; 84302; 84520; 85014; 85018; 85025; 85027; 85045; 85049; 85379; 85610; 85730; 86850; 86900; 86901; 86920; 87070; 93005; 93312; 93320; 93321; 93325; 93880; 94002; 97116; 97163; 97167; 97530; C1768; J2916; P9016; P9047

== ENCOUNTER 2024-02-08 15:59 | Emergency (ER) | payer OTHER, SELFPAY ==
[2024-02-08 16:01] VITALS: BP 140/94
[2024-02-08 16:24] LABS: Glucose - Point of Care 80 mg/dl (70-99)
[2024-02-08 16:33] VITALS: BP 167/81
[2024-02-08 16:35] VITALS: BMI 26.7
[2024-02-08 17:00] LABS: % Basophils 0.6 % (0-2); % Eosinophils 3.1 % (0-6); % Immature Granulocytes 3.4 % (0-0.5); % Lymphocytes 13.8 % (20.5-51.1); % Monocytes 11.5 % (1.7-9.3); % Neutrophils 67.6 % (42.2-75.2); Absolute Basophils 0.1 10^3/uL (0-0.2); Absolute Eosinophils 0.3 10^3/uL (0-0.7); Absolute Immature Granulocytes 0.3 10^3/uL (0-0.05); Absolute Lymphocytes 1.4 10^3/uL (1.2-3.4); Absolute Monocytes 1.2 10^3/uL (0.1-0.6); Absolute Neutrophils 6.8 10^3/uL (1.4-6.5); Hematocrit 34.1 % (37.0-47.0); Hemoglobin 11.9 g/dL (12.0-16.0); Mean Corp Hgb Conc. 34.9 g/dL (33.0-37.0); Mean Corpuscular Hgb 31.2 pg (27.0-31.0); Mean Corpuscular Volume 89.5 fL (81.0-99.0); Nucleated Red Blood Cells % 0 %; Platelet Count 181 10^3/uL (130-400); Red Blood Cell Count 3.81 10^6/uL (4.20-5.40); Red Cell Dist. Width 13.2 % (11.5-14.5)
[2024-02-08 17:13] VITALS: BP 168/89
[2024-02-08 17:16] LABS: ALT (SGPT) 20 U/L (0-35); AST (SGOT) 46 U/L (14-36); Albumin 4.2 g/dl (3.5-5.0); Alkaline Phosphatase 64 U/L (38-126); Blood Urea Nitrogen 19 mg/dl (7-17); Calcium 9.8 mg/dl (8.4-10.2); Carbon Dioxide 23 mmol/L (22-30); Chloride 101 mmol/L (98-107); Estimated Creatinine Clearance 47 ml/min; Glucose 96 mg/dl (70-99); Potassium 4.5 mmol/L (3.5-5.1); Sodium 136 mmol/L (135-145); Total Protein 6.5 g/dl (6.3-8.2); eGFR > 60.00
[2024-02-08] MEDS: NSS 1000 IV (17:46)
[2024-02-08 18:33] LABS: Urine Albumin Negative (Neg - Trace); Urine Bilirubin Negative (Negative); Urine Character Clear (Clear); Urine Color Yellow; Urine Glucose Negative (Negative); Urine Ketone Trace (Negative); Urine Leukocyte Negative (Negative); Urine Nitrite Negative (Negative); Urine Occult Blood Negative (Negative); Urine Urobilinogen Negative (Neg - 1+)
[2024-02-08 18:50] VITALS: BP 154/119
[2024-02-08 19:34] VITALS: BP 170/69
--- NOTE | 2024-02-08 20:27 | ED.CVA ---
History of Present Illness
General
Chief Complaint: CVA/TIA Symptoms
Source: patient, records and family
Exam Limitations: none
Time Seen by Provider: 02/08/24 16:55
Nursing documentation reviewed up to this point in time: agreed with
Onset of Stroke Symptoms
Onset of symptoms known: Yes
Date of onset of symptoms: 02/08/24
Time of onset of symptoms: 15:15
Time pt last seen normal is known: Yes
Date last time pt seen normal: 02/08/24
Time last time pt seen normal: 13:30
History of Present Illness
History of Present Illness:
Patient is a 83-year-old female presents to the emergency department after becoming disoriented and acute mental status change today. Patient had mitral valve repair on January 30. Patient has been doing well and was discharged on February 05.
Patient had 3 episodes of diarrhea today and 1 day ago. Patient was becoming incontinent of stool. Patient then took 2 doses of 10 mg of Bentyl this morning. Patient laid down and went to sleep from 1:30-3:15. When she awoke she was disoriented
and had forgotten that her had and felt out of it. Patient is feeling much improved by the time she came to the emergency department patient has not had any fever or chills, chest pain, shortness of breath or palpitations. Patient
denies any nasal congestion, sore throat or cough. Patient denies any abdominal pain, nausea, vomiting. Patient was not hungry earlier in the day but now she is. Patient was given antibiotics at the time of surgery but no other antibiotics.
Patient states the stool was soft and liquidy. Patient denies any symptoms. Patient is back to her baseline at this time. Patient has had much personal stress outside of the surgery over the last few weeks.
Past History
Past History
ED Past Medical History: HTN and Other (Mitral valve repair)
ED Past Surgical History: Cardiac, , Orthopedic (Left knee meniscus repair, bilateral shoulder rotator cuff repair) and Other (Venous stripping right leg)
Social History
Tobacco: Non-smoker
Alcohol: None
Drug: None
Personal:
Living: with family
Employment: Employed
Review of Systems
Review of Systems
All Other Systems: ROS reviewed and negative except as documented in HPI and ROS
Constitutional: Reports fatigue; Denies fever, sleep disturbance or chills
EENT: Reports no symptoms
Respiratory: Reports no symptoms
Cardiac: Reports no symptoms
ABD/GI: Reports diarrhea; Denies abdominal pain, nausea, vomiting, bloody stools, black stools or anorexia
: Reports no symptoms
Musculoskeletal: Reports no symptoms
Skin: Reports no symptoms
Neurological: Reports other (Fusion); Denies dizzy, headache, weakness or numbness
Hematologic/Lymphatic: Reports no symptoms
Psychiatric: Reports no symptoms
Phy Exam
Physical Exam
Physical Exam:
Physical Exam
General: No apparent distress, alert and appropriate, well nourished, well hydrated
HENT: Normocephalic, supple with no lymphadenopathy, no thyromegaly
Eyes: Clear sclera, conjuctiva without injection
Heart: Regular rhythm and rate. No S3, S4. No murmur. No NVD
Lungs: No respiratory distress, no stridor, lung sounds clear and equal bilaterally, chest wall symmetrical and mildly tender around surgical site but healing well without cellulitis
Abdomen: Soft, nontender, no organomegaly, no CVA tenderness, BS good
Neuro: Alert and oriented x 3, CN II - XII intact, no motor focality, no cerebellar dysfunction
Skin: no rash
Psychiatric: well kept. interactive and cooperative
Extremities: No edema, cyanosis, tenderness
Course
Orders/Labs/Results
Orders:
Orders
02/08/24 16:08
CT Head W/o Iv Contrast Urgent
Comment:
Reason For Exam: confusion
02/08/24 16:13
EKG [Electrocardiogram (*1)] Urgent
Reason for Study: Tachycardia
EKG- Treatment ONCE
02/08/24 16:15
Bedside Glucose Monitoring-ONCE As Directed
02/08/24 16:50
Complete Blood Count/With Diff Urgent
Comprehensive Metabolic Panel Urgent
02/08/24 17:28
0.9% Sodium Chloride 1000 ml [Nss] 1,000 ml IV BOLUS
02/08/24 18:26
Urinalysis Reflex To Culture Urgent
Date Specimen was Collected: 02/08/24
Time Specimen was Collected: 18:24
02/08/24 20:00
STOOL [C difficile Antigen & Toxins] Urgent
FARHAN Source: Feces/Stool
Specimen Description:
Date Specimen was Collected: 02/08/24
Time Specimen was Collected: 19:57
Abnormal Lab Results
02/08/24 02/08/24
16:50 18:26
RBC 3.81 L 10^6/uL
(4.20-5.40)
Hgb 11.9 L g/dL
(12.0-16.0)
Hct 34.1 L %
(37.0-47.0)
MCH 31.2 H pg
(27.0-31.0)
Abs Immat Gran (auto) 0.3 H 10^3/uL
(0-0.05)
Absolute Neuts (auto) 6.8 H 10^3/uL
(1.4-6.5)
Absolute Monos (auto) 1.2 H 10^3/uL
(0.1-0.6)
Immature Gran % 3.4 H %
(0-0.5)
Lymphocytes % 13.8 L %
(20.5-51.1)
Monocytes % 11.5 H %
(1.7-9.3)
BUN 19 H mg/dl
(7-17)
AST 46 H U/L
(14-36)
Urine Ketones Trace A
(Negative)
02/08/24 16:50
02/08/24 16:50
Vital Signs
Initial and Last Documented VS:
Initial Vital Signs
Temp Pulse Resp BP Pulse Ox
98.7 F 71 16 140/94 95
02/08/24 16:01 02/08/24 16:01 02/08/24 16:01 02/08/24 16:01 02/08/24 16:01
Last Documented Vital Signs
Temp Pulse Resp BP Pulse Ox
98.7 F 82 32 170/69 94
02/08/24 16:01 02/08/24 19:34 02/08/24 19:34 02/08/24 19:34 02/08/24 19:34
*Radiology
Radiology exam reviewed: radiology read reviewed (Nothing acute)
*Pulse Oximetry
Patient hypoxic: no
*EKG
Interpreted by ED Provider?: Yes
EKG Intrepretation Date: 02/08/24
EKG Intrepretation Time: 20:34
Interpretation: normal
Comparison EKG: no changes
Heart Rate: 78
Rate: normal
Rhythm: sinus
Bandana: normal axis
Interval: normal interval
QRS Pattern: normal QRS
Ischemia: non-specific ST changes
*Signs And Displays Sales Representative Interpretation
Rate: normal
Interpretation: normal
Heart Rate: 80
Rhythm: sinus
*Critical Care Note
Total Time (30-74mins, 75-104mins- exclusive of procedures): Not Applicable
Update Note
Update Note:
Patient is back to baseline. Do not have a absolute etiology. It could have been the Bentyl or transient electrolyte abnormality. Patient will be discharged. There is no signs of CVA.
ED Attending Note
-
Portions of this chart may have been created with voice recognition software.� Occasional wrong word or��sound alike� substitutions may have occurred due to the inherent limitations of voice recognition software.
Discharge Plan
Departure
Patient Disposition: Home (Routine Discharge)
Date of Disposition: 02/08/24
Time of Disposition: 20:35
Patient with high blood pressure during this ER visit?: Yes
Condition: Good
Covid-19: Not Applicable
Discharge Problem:
Acute alteration in mental status
Instructions: Delirium (confusion), BLOOD PRESSURE
Prescriptions:
No Action
lorazepam 1 mg tablet
1 mg PO BIDPRN PRN (Reason: Mental Health/Anxiety)
escitalopram oxalate 20 mg Tablet
20 mg PO DAILY
melatonin 1 mg Tablet,Chewable
2 mg PO HS
pantoprazole 40 mg Tablet,Delayed Release (Dr/Ec)
40 mg PO DAILY Qty: 30 0RF
Rx Instructions:
GI prophylaxis w/ Coumadin. Obtain refills from PCP/Cardiology
furosemide [Lasix] 40 mg tablet
40 mg PO DAILY Qty: 7 7RF
Rx Instructions:
Take for 7 days until empty and then stop unless instructed otherwise
potassium chloride 20 mEq tablet extended release
20 meq PO DAILY Qty: 7 0RF
Rx Instructions:
Take daily with Lasix for 7 days and stop unless instructed otherwise
acetaminophen [Tylenol Extra Strength] 500 mg Tablet
1,000 mg PO Q6HPRN PRN (Reason: mild pain)
warfarin 2.5 mg tablet
2.5 mg PO HS
Rx Instructions:
Take 2.5 mg daily as directed by provider for 3 months
cyclobenzaprine 5 mg tablet
5 mg PO Q8HPRN PRN (Reason: muscle spasms)
Rx Instructions:
As needed for moderate/severe pain/muscle spasms
metoprolol tartrate 25 mg tablet
25 mg PO BID
Referrals:
Balaji Gross DO [Family Provider] - Follow up in 2-3 days
Activity Restrictions/Additional Instructions:
Continue present medications and therapy. Any problems please return or follow-up with your primary physician
Interventions
Interventions:
*Risk Screen - Suicide Last Done: 02/08/24 16:01
*General Assessment Last Done: 02/08/24 16:36
*Neglect/Abuse Screening Last Done: 02/08/24 16:36
ED- Fall Risk Assessment Last Done: 02/08/24 16:01
*ED COVID-19 Vaccine History Last Done: 02/08/24 16:01
ED- Pulmonary Assessment Last Done: 02/08/24 16:36
ED- Neurological Assessment Last Done: 02/08/24 16:36
ED- Cardiac Assessment Last Done: 02/08/24 16:36
ED Swallowing Screen Last Done: 02/08/24 16:55
Discharge Date and Time
Print Language: ICELANDIC
== END 2024-02-08 21:20 | disposition home or self-care (01) ==
LOC: EMR 15:59
PROVIDERS: EMERGENCY PHYSICIAN Emergency Medicine; FAMILY PHYSICIAN Internal Medicine
DX: R41.82 Altered mental status, unspecified (principal); R19.7 Diarrhea, unspecified; R53.83 Other fatigue; I10 Essential (primary) hypertension; Z73.3 Stress, not elsewhere classified; K58.9 Irritable bowel syndrome, unspecified; M19.90 Unspecified osteoarthritis, unspecified site; D50.9 Iron deficiency anemia, unspecified; Z98.890 Other specified postprocedural states; Z88.2 Allergy status to sulfonamides; Z88.8 Allergy status to other drugs, medicaments and biological substances
CPT/HCPCS: 99285; 96360; 70450; 80053; 81003; 82962; 85025; 87324; 87449; 93005

== ENCOUNTER 2024-02-17 16:35 | Emergency (ER) | payer OTHER, SELFPAY ==
[2024-02-17 16:39] VITALS: BP 149/88
--- NOTE | 2024-02-17 19:31 | ED.GENMED ---
History of Present Illness
General
Chief Complaint: Visual Problem
Time Seen by Provider: 02/17/24 19:08
History of Present Illness
History of Present Illness:
83-year-old female with history of hypertension and mitral valve replacement on 01/30 on Coumadin presenting to the emergency department for visual issue. Patient reports for the past several years she has had intermittent issues with her vision,
describes it as 'kaleidoscope vision'. Since her surgery on 01/30, has had increased frequency, prominent to the left eye. Also notes some double vision. She saw her eye doctor last Tuesday secondary to her symptoms, noted to have a normal exam.
She saw her interchange agent today, advised to come to the hospital given her symptoms. Denies any weakness or numbness to her extremities. Denies currently having the symptoms, reports that they are intermittent, varying in length of duration. Feels
that they are more prominent at nighttime when she is watching television. Denies fever. Denies any complications with surgery. Denies additional acute complaints
Past History
Past History
ED Past Medical History: HTN and Other (Mitral valve repair)
ED Past Surgical History: Cardiac, , Orthopedic (Left knee meniscus repair, bilateral shoulder rotator cuff repair) and Other (Venous stripping right leg)
Social History
Tobacco: Non-smoker
Alcohol: None
Drug: None
Personal:
Living: with family
Employment: Employed
Phy Exam
Physical Exam
Physical Exam:
General: Well-appearing, no clinical signs of dehydration, nontoxic and in no acute distress
HEENT: protecting airway, pupils equal and reactive bilaterally, extraocular movements intact
Neck: appears supple
CV: Normal heart rate, regular rhythm, healing midsternal incision
Resp: No accessory muscle use, no increased work of breathing, lungs clear to auscultation bilaterally
Abd: Soft and non-distended, no tenderness to palpation
Extremities: No deformities, no swelling, no erythema
Neuro: alert, no focal neurologic deficit
: deferred
Rectal: deferred
Psych: Normal affect
Skin: Intact
Course
Orders/Labs/Results
Orders:
Orders
02/17/24 16:43
Electrocardiogram (*1) Urgent
Reason for Study: Other
Other Reason for Exam: Possible Stroke
CT Head W/o Iv Contrast Urgent
Comment:
Reason For Exam: kaleidoscope vision
EKG- Treatment ONCE
02/17/24 19:25
CT Head & Neck Angio W/wo IV Urgent
Comment:
Reason For Exam: double vision L-eye
02/17/24 19:31
Complete Blood Count/With Diff Urgent
Comprehensive Metabolic Panel Urgent
Prothrombin Time Urgent
Abnormal Lab Results
02/17/24
19:31
RBC 4.06 L 10^6/uL
(4.20-5.40)
Hct 36.9 L %
(37.0-47.0)
Abs Immat Gran (auto) 0.1 H 10^3/uL
(0-0.05)
Absolute Monos (auto) 1.0 H 10^3/uL
(0.1-0.6)
Lymphocytes % 19.8 L %
(20.5-51.1)
Monocytes % 10.4 H %
(1.7-9.3)
PT 24.9 H Sec
(11.4-14.6)
BUN 28 H mg/dl
(7-17)
Alkaline Phosphatase 133 H U/L
(38-126)
02/17/24 19:31
02/17/24 19:31
Vital Signs
Initial and Last Documented VS:
Initial Vital Signs
Temp Pulse Resp BP Pulse Ox
98 F 75 16 149/88 96
02/17/24 16:39 02/17/24 16:39 02/17/24 16:39 02/17/24 16:39 02/17/24 16:39
Last Documented Vital Signs
Temp Pulse Resp BP Pulse Ox
98 F 75 18 156/83 94
02/17/24 16:39 02/17/24 22:10 02/17/24 22:10 02/17/24 22:10 02/17/24 22:10
MDM/Problems Addressed
MDM/Problems Addressed:
83 year old female status post mitral valve replacement on 01/30 presenting for visual issue to the left eye. Vital signs on arrival are normal.
On exam, patient well-appearing, no acute distress or discomfort. Externally normal eye exam. Patient reportedly had full ocular exam by chief clerk a week ago. At this time lower suspicion for primary ocular issue. Patient's issue is
chronic in nature, reports that she has had this issue for about 7 years, however feels that its increased in frequency in the past few weeks after her surgery. Also notes that it is more frequent at nighttime when she is watching TV, possibly
secondary to fatigue. Her doctor was concerned for possible embolic or occlusive issue. Patient had CT brain imaging prior to my assessment, unremarkable. Will obtain CT angio and check coags given Coumadin
22:10 - Patient's CT within normal limits. Given chronicity of symptoms, feel stable for discharge with continued outpatient workup and potential outpatient MRI. Strict return precautions communicated and patient verbalized understanding
*Critical Care Note
Total Time (30-74mins, 75-104mins- exclusive of procedures): Not Applicable
ED Attending Note
-
Portions of this chart may have been created with voice recognition software.� Occasional wrong word or��sound alike� substitutions may have occurred due to the inherent limitations of voice recognition software.
Discharge Plan
Departure
Prescriptions:
No Action
lorazepam 1 mg tablet
1 mg PO BIDPRN PRN (Reason: Mental Health/Anxiety)
escitalopram oxalate 20 mg Tablet
20 mg PO DAILY
melatonin 1 mg Tablet,Chewable
2 mg PO HS
pantoprazole 40 mg Tablet,Delayed Release (Dr/Ec)
40 mg PO DAILY Qty: 30 0RF
Rx Instructions:
GI prophylaxis w/ Coumadin. Obtain refills from PCP/Cardiology
furosemide [Lasix] 40 mg tablet
40 mg PO DAILY Qty: 7 7RF
Rx Instructions:
Take for 7 days until empty and then stop unless instructed otherwise
potassium chloride 20 mEq tablet extended release
20 meq PO DAILY Qty: 7 0RF
Rx Instructions:
Take daily with Lasix for 7 days and stop unless instructed otherwise
acetaminophen [Tylenol Extra Strength] 500 mg Tablet
1,000 mg PO Q6HPRN PRN (Reason: mild pain)
warfarin 2.5 mg tablet
2.5 mg PO HS
Rx Instructions:
Take 2.5 mg daily as directed by provider for 3 months
cyclobenzaprine 5 mg tablet
5 mg PO Q8HPRN PRN (Reason: muscle spasms)
Rx Instructions:
As needed for moderate/severe pain/muscle spasms
metoprolol tartrate 25 mg tablet
25 mg PO BID
Referrals:
Balaji Gross DO [Family Provider] -
Interventions
Interventions:
*Risk Screen - Suicide Last Done: 02/17/24 16:39
ED- Neurological Assessment Last Done: 02/17/24 19:00
ED-EENT Assessment Last Done: 02/17/24 19:00
ED Swallowing Screen Last Done: 02/17/24 19:00
Discharge Date and Time
Print Language: PAPUA [place]
[2024-02-17 19:38] LABS: % Basophils 0.7 % (0-2); % Immature Granulocytes 0.5 % (0-0.5); % Lymphocytes 19.8 % (20.5-51.1); % Monocytes 10.4 % (1.7-9.3); % Neutrophils 62.6 % (42.2-75.2); Absolute Basophils 0.1 10^3/uL (0-0.2); Absolute Eosinophils 0.6 10^3/uL (0-0.7); Absolute Immature Granulocytes 0.1 10^3/uL (0-0.05); Absolute Lymphocytes 1.8 10^3/uL (1.2-3.4); Absolute Neutrophils 5.7 10^3/uL (1.4-6.5); Hematocrit 36.9 % (37.0-47.0); Hemoglobin 12.6 g/dL (12.0-16.0); Mean Corp Hgb Conc. 34.1 g/dL (33.0-37.0); Mean Corpuscular Volume 90.9 fL (81.0-99.0); Mean Platelet Volume 9.4 fL (7.4-10.4); Nucleated Red Blood Cells % 0 %; Platelet Count 204 10^3/uL (130-400); Red Blood Cell Count 4.06 10^6/uL (4.20-5.40); Red Cell Dist. Width 13.1 % (11.5-14.5); White Blood Cell Count 9.2 10^3/uL (4.8-10.8)
[2024-02-17 19:49] LABS: INR 2.27; PT 24.9 Sec (11.4-14.6)
[2024-02-17 20:00] LABS: ALT (SGPT) 27 U/L (0-35); AST (SGOT) 36 U/L (14-36); Albumin 4.5 g/dl (3.5-5.0); Alkaline Phosphatase 133 U/L (38-126); Blood Urea Nitrogen 28 mg/dl (7-17); Calcium 9.7 mg/dl (8.4-10.2); Carbon Dioxide 26 mmol/L (22-30); Chloride 99 mmol/L (98-107); Glucose 98 mg/dl (70-99); Potassium 4.6 mmol/L (3.5-5.1); Sodium 138 mmol/L (135-145); Total Bilirubin 0.6 mg/dl (0.2-1.3); Total Protein 7.1 g/dl (6.3-8.2); eGFR > 60.00
[2024-02-17 22:10] VITALS: BP 156/83
== END 2024-02-17 22:30 | disposition home or self-care (01) ==
LOC: EMR 16:35
PROVIDERS: EMERGENCY PHYSICIAN Student in an Organized Health Care Education/Training Program; FAMILY PHYSICIAN Internal Medicine
DX: H53.2 Diplopia (principal); H53.8 Other visual disturbances; I10 Essential (primary) hypertension; Z98.890 Other specified postprocedural states; Z95.2 Presence of prosthetic heart valve; Z79.01 Long term (current) use of anticoagulants; Z88.2 Allergy status to sulfonamides; Z88.8 Allergy status to other drugs, medicaments and biological substances
CPT/HCPCS: 99284; 70450; 70496; 70498; 80053; 85025; 85610; 93005; Q9967

== ENCOUNTER → 2024-03-23 14:27 | Outpatient (REF) | payer OTHER, SELFPAY | LOC: HWRAD 14:27 | PROVIDERS: ATTENDING PHYSICIAN Nurse Practitioner Family; FAMILY PHYSICIAN Internal Medicine | DX: E04.1 Nontoxic single thyroid nodule (principal) | CPT/HCPCS: 76536 ==

== ENCOUNTER 2024-03-28 12:12 | Outpatient (RCR) | payer OTHER, SELFPAY | END 2024-03-28 23:59 | disposition home or self-care (01) | LOC: CRHB 12:12 | PROVIDERS: ATTENDING PHYSICIAN Internal Medicine Cardiovascular Disease; FAMILY PHYSICIAN Internal Medicine | DX: I50.32 Chronic diastolic (congestive) heart failure (principal); Z95.4 Presence of other heart-valve replacement | CPT/HCPCS: G0422; G0423 ==

== ENCOUNTER 2024-03-28 13:21 | Emergency (ER) | payer OTHER, SELFPAY ==
[2024-03-28 13:23] VITALS: BP 147/91
[2024-03-28 13:32] VITALS: BMI 26.0
[2024-03-28 14:00] VITALS: BP 147/80
[2024-03-28] MEDS: ROXICODONE 5 MG PO (14:22)
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
[2024-03-28 16:34] VITALS: BP 135/80
== END 2024-03-28 16:35 | disposition home or self-care (01) ==
LOC: EMR 13:21
PROVIDERS: EMERGENCY PHYSICIAN Emergency Medicine; FAMILY PHYSICIAN Internal Medicine
DX: S00.83XA Contusion of other part of head, initial encounter (principal); S00.81XA Abrasion of other part of head, initial encounter; S00.31XA Abrasion of nose, initial encounter; R51.9 Headache, unspecified; M54.2 Cervicalgia; W17.89XA Other fall from one level to another, initial encounter; Y93.01 Activity, walking, marching and hiking; Y92.481 Parking lot as the place of occurrence of the external cause; I10 Essential (primary) hypertension; M19.90 Unspecified osteoarthritis, unspecified site; K58.9 Irritable bowel syndrome, unspecified; D50.9 Iron deficiency anemia, unspecified; F41.9 Anxiety disorder, unspecified; Z79.01 Long term (current) use of anticoagulants; Z98.890 Other specified postprocedural states; Z95.1 Presence of aortocoronary bypass graft
CPT/HCPCS: 99285; 70450; 70486; 71046; 72125

== ENCOUNTER → 2024-04-06 16:00 | Outpatient (REF) | payer OTHER, SELFPAY | LOC: RAD 16:00 | PROVIDERS: ATTENDING PHYSICIAN Internal Medicine | DX: R10.11 Right upper quadrant pain (principal) | CPT/HCPCS: 74177; Q9967 ==

== ENCOUNTER 2024-04-20 15:56 | Outpatient (RCR) | payer OTHER, SELFPAY | END 2024-04-20 23:59 | disposition home or self-care (01) | LOC: CRHB 15:56 | PROVIDERS: ATTENDING PHYSICIAN Internal Medicine Cardiovascular Disease; FAMILY PHYSICIAN Internal Medicine | DX: Z95.4 Presence of other heart-valve replacement (principal) | CPT/HCPCS: G0422; G0423 ==

== ENCOUNTER 2024-05-28 15:43 | Outpatient (RCR) | payer OTHER, SELFPAY | END 2024-05-28 23:59 | disposition home or self-care (01) | LOC: CRHB 15:43 | PROVIDERS: ATTENDING PHYSICIAN Internal Medicine Cardiovascular Disease; FAMILY PHYSICIAN Internal Medicine | DX: Z95.4 Presence of other heart-valve replacement (principal) | CPT/HCPCS: G0422; G0423 ==

== ENCOUNTER 2024-06-22 15:06 | Outpatient (RCR) | payer OTHER, SELFPAY | END 2024-06-22 23:59 | disposition home or self-care (01) | LOC: CRHB 15:06 | PROVIDERS: ATTENDING PHYSICIAN Internal Medicine Cardiovascular Disease | DX: Z95.4 Presence of other heart-valve replacement (principal) | CPT/HCPCS: G0422; G0423 ==

== ENCOUNTER 2024-07-11 14:00 | Outpatient (RCR) | payer OTHER, SELFPAY | END 2024-07-11 23:59 | disposition home or self-care (01) | LOC: CRHB 14:00 | PROVIDERS: ATTENDING PHYSICIAN Internal Medicine Cardiovascular Disease; FAMILY PHYSICIAN Internal Medicine | DX: Z95.4 Presence of other heart-valve replacement (principal); I10 Essential (primary) hypertension | CPT/HCPCS: G0422; G0423 ==

== ENCOUNTER → 2024-08-22 16:13 | Outpatient (REF) | payer OTHER, SELFPAY | LOC: RCS 16:13 | PROVIDERS: ATTENDING PHYSICIAN Thoracic Surgery (Cardiothoracic Vascular Surgery); FAMILY PHYSICIAN Internal Medicine; REFERRING PHYSICIAN Internal Medicine Cardiovascular Disease | DX: Z95.2 Presence of prosthetic heart valve (principal) | CPT/HCPCS: 93306 ==